=== PATIENT | female | born 1930 | race Caucasian/White ===

== ENCOUNTER 2017-04-01 14:07 | Outpatient (CLI) | payer MEDICARE, OTHER | END 2017-04-01 14:08 | disposition home or self-care (01) | LOC: BICCT 14:07 | PROVIDERS: ATTEND Nurse Practitioner Family | DX: M51.16 Intervertebral disc disorders with radiculopathy, lumbar region (principal); M48.04 Spinal stenosis, thoracic region; M41.9 Scoliosis, unspecified; M25.78 Osteophyte, vertebrae; M48.061 Spinal stenosis, lumbar region without neurogenic claudication; M43.16 Spondylolisthesis, lumbar region; K76.89 Other specified diseases of liver; D35.00 Benign neoplasm of unspecified adrenal gland; M47.26 Other spondylosis with radiculopathy, lumbar region | CPT/HCPCS: 72128; 72131 ==

== ENCOUNTER 2017-11-24 10:34 | Inpatient (IN) | payer MEDICARE, OTHER ==
--- NOTE | 2017-11-24 11:52 | RAD ---
3 VIEW RIGHT HAND: Date: 11/24/17 INDICATION: Injury, fall with pain. FINDINGS: There is scattered osteoarthritis and osseous demineralization. Degenerative, chronic mild subluxatio n at the first CMC joint is present with adjacent heterotopic density and osseous remodeling. No acut e fracture visualized. IMPRESSION: No acute osseous abnormality of the right hand. POS: [facility]
--- NOTE | 2017-11-24 11:55 | RAD ---
FRONTAL VIEW PELVIS: Date: 11/24/17 INDICATION: Injury with fall. FINDINGS: There is no displaced hip fracture. There is a focal density overlying the proximal right femoral met aphysis, which could relate to sclerosis from a bone island or alternatively overlying soft tissue ca lcification, not further localized on the frontal view. There are scattered osseous degenerative soto ges. Phleboliths are present overlying the pelvis. There is moderate retained fecal material of the r ectosigmoid colon. IMPRESSION: No acute osseous abnormality of the pelvis. POS: [facility]
--- NOTE | 2017-11-24 11:56 | RAD ---
FRONTAL VIEW CHEST: Date: 11/24/17 COMPARISON: None available. INDICATION: Fall with injury and pain. FINDINGS: There is no lobar consolidation, effusion, or discrete pneumothorax. Cardiac silhouette is accentuate d by portable technique, as is the mediastinum. There is a left side dual lead cardiac pacing device with leads overlying expected region of right atrium and right ventricle. Surgical anchor is seen at the right shoulder. IMPRESSION: No focal consolidation. POS: [facility]
--- NOTE | 2017-11-24 11:57 | RAD ---
LEFT WRIST 3 VIEWS: Date: 11/24/17 HISTORY: 87-year-old female with history of mechanical fall from standing with left wrist pain. FINDINGS: Diffuse bone demineralization. Degenerative changes left wrist. Subtle cortical and trabecular irregu larity involving the distal radius metaphysis region, evidence for a nondisplaced fracture. IMPRESSION: Evidence for a nondisplaced fracture through the distal radial metaphysis without significant malalig nment. POS: [facility]
--- NOTE | 2017-11-24 11:58 | RAD ---
2 VIEW LEFT HIP: Date: 11/24/17 INDICATION: Fall from standing with pain. FINDINGS: There is no evidence of an acute fracture or dislocation of the left hip. There is mild osteoarthriti s. IMPRESSION: No acute osseous abnormality of the left hip. POS: [facility]
--- NOTE | 2017-11-24 11:59 | RAD ---
4 VIEW LEFT KNEE SERIES: Date: 11/24/17 INDICATION: Fall with injury and pain. FINDINGS: Chondrocalcinosis, joint compartment narrowing, and mild osteophytosis are present. There is no signi ficant joint capsular distention or evidence of acute fracture. Soft tissue prominence is seen. IMPRESSION: 1. Evidence of CPPD deposition disease. 2. There is no acute fracture. POS: [facility]
--- NOTE | 2017-11-24 12:00 | RAD ---
RIGHT KNEE 4 VIEW SERIES: Date: 11/24/17 INDICATION: Fall with injury, pain. FINDINGS: There is chondrocalcinosis, osteophytosis, and mild joint compartment narrowing. Mild joint capsular distention is seen at the suprapatellar bursa and there is mild soft tissue prominence. No discrete f racture. IMPRESSION: 1. CPPD deposition disease. 2. Mild joint capsular distention. 3. No acute fracture. POS: [facility]
--- NOTE | 2017-11-24 12:01 | RAD ---
LEFT HAND 3 VIEWS: Date: 11/24/17 HISTORY: [id number] female with history of left hand injury following a fall from standing. FINDINGS: Bone demineralization and generalized degenerative changes of the hand. Again noted is a nondisplaced , mildly buckling-type fracture through the distal radial metaphysis without displacement or malalign ment. IMPRESSION: Bone demineralization with degenerative and osteoarthrosis changes of the hand. Nondisplaced distal r adial fracture without malalignment. POS: [facility]
[2017-11-24 12:04] LABS: #Eosinphils 0.2 thou/uL (0.0-0.7); #Lymphocytes 0.9 thou/uL (1.20-3.40); #Monocytes 0.6 thou/uL (0.11-0.59); #Neutrophils 5.8 thou/uL (1.40-6.50); %Basophils 0.6 % (0.0-1.0); %Eosinophils 2.1 % (0.0-10.0); %Lymphocytes 11.5 % (21.0-51.0); %Monocytes 7.7 % (0.0-10.0); Hemoglobin 11.1 g/dL (12.0-16.0); Mean Corpuscular HGB CONC 32.7 g/dL (32.0-36.0); Mean Corpuscular Hemoglobin 28.6 pg (27.0-31.0); Mean Corpuscular Volume 87.6 fL (78.0-98.0); Mean Platelet Volume 7.6 fL (7.4-10.4); Platelet Count 236 thou/uL (130-400); RBC Distribution Width 12.6 % (11.5-14.5); Red Blood Cell (RBC) Count 3.89 mill/uL (4.20-5.40); White Blood Cell (WBC) Count 7.4 thou/uL (4.8-10.8)
[2017-11-24 12:10] LABS: INR-International Normal Ratio 1.1; PTT 28.6 SEC (22.9-36.1); Prothrombin Time 14.7 SEC (12.0-14.7)
[2017-11-24 12:23] LABS: ALT (SGPT) 23 U/L (8-55); AST (SGOT) 35 U/L (5-34); Albumin 3.7 g/dL (3.4-4.8); Alkaline Phosphatase 90 U/L (40-150); Anion Gap 14 mmol/L (10-20); BUN (Urea Nitrogen) 20 mg/dL (9.8-20.1); Bilirubin, Total 0.9 mg/dL (0.2-1.2); CK (CPK) 437 U/L (29-168); Calc. Creatinine Clearance 0 mL/min (70-130); Calcium 9.2 mg/dL (7.8-10.44); Carbon Dioxide 22 mmol/L (23-31); Chloride 105 mmol/L (98-107); Estimated GFR-MDRD 84; Globulin 2.4 g/dL (2.4-3.5); Glucose 103 mg/dL (83-110); Potassium 3.3 mmol/L (3.5-5.1); Protein, Total 6.1 g/dL (6.0-8.3); Sodium 138 mmol/L (136-145)
[2017-11-24 12:27] LABS: Troponin I 0.011 ng/mL (< 0.028)
[2017-11-24 12:33] LABS: CKMB 11.8 ng/mL (0-6.6)
--- NOTE | 2017-11-24 13:06 | CT ---
CT HEAD NONCONTRAST: Date: 11/24/17 INDICATION: Head injury with pain related to fall. There is mild parenchymal volume loss. There is also prominence of the ventricular system and moderat e chronic ischemic disease of the cerebral white matter. No intracranial hemorrhage, mass effect, or midline shift. No acute fluid level of the paranasal sinuses. IMPRESSION: 1. Prominent ventricular system notable at the frontal horns which is slightly out of proportion to the degree of size of the cerebral sulci. Recommend clinical correlation for evidence of normal press ure hydrocephalus. 2. No acute intracranial hemorrhage or mass effect. 3. Mild to moderate chronic ischemic disease of the cerebral white matter. Gliosis is also seen with in the bilateral basal ganglia. POS: [facility]
--- NOTE | 2017-11-24 13:07 | CT ---
CERVICAL SPINE CT NONCONTRAST: Date: 11/24/17 CLINICAL INDICATION: Fall with neck pain, injury. FINDINGS: There is diffuse osseous demineralization with multifocal areas of scattered osseous lucency. No cran iocervical distraction injury. There is no compression fracture or significant subluxation. IMPRESSION: No acute osseous abnormality of the cervical spine. POS: [facility]
--- NOTE | 2017-11-24 13:09 | CT ---
CT FACIAL BONES NONCONTRAST: Date 11/24/17 INDICATION: Injury related to fall with pain. FINDINGS: No retrobulbar hematoma or mass effect. [place] intraocular lenses are absent. Each zygomatic arch is intact. There is no displaced nasal bone fracture. Maxillary sinus barajas and bilateral orbital barajas are intact. There is a left moore nasal septal spur. No fracture at the pterygoid plates. Temporomandi bular joints maintain appropriate alignment. IMPRESSION: No displaced facial fracture. POS: [facility]
[2017-11-24 13:13] LABS: Bilirubin Negative (Negative); Blood, Urine Negative (Negative); Clarity CLOUDY (Clear); Glucose, Urine (Dipstick) Negative (Negative); Leukocyte Small (Negative); Nitrite Negative (Negative); Protein, Urine (Dipstick) Negative (Neg-Trace); Specific Gravity, Urine 1.014 (1.002-1.036); Urobilinogen 0.2 mg/dL (0.2-1.0)
[2017-11-24 13:15] LABS: Bacteria/HPF None Seen HPF (None Seen); Hyaline Casts/LPF 0-3 HYALINE CAST LPF (0-3 Hyaline); Pathc Cast-AUWi Flag 0.14 (0-2.49); Squamous Epithelial 0-3 HPF (0-3); WBC/HPF 0-3 HPF (0-3)
[2017-11-24 13:25] LABS: RBC/HPF None Seen HPF (0-3)
[2017-11-24] MEDS ORDERED: HYDROcodone/Acetaminophen 10/325 mg Tablet ONE (15:21)
[2017-11-24] MEDS ORDERED: HYDROcodone/Acetaminophen 5/325 mg Tablet PO PRN ×2 (16:24)
[2017-11-24] MEDS ORDERED: Acetaminophen 325 MG TAB PO PRN (16:24)
[2017-11-24] MEDS ORDERED: Ondansetron ODT 4 MG TAB SL PRN (16:24)
[2017-11-24] MEDS ORDERED: Ondansetron HCl/PF 4 MG/2 ML Vial IVP PRN (16:24)
[2017-11-24 16:45] VITALS: BMI 29.0
[2017-11-24] MEDS ORDERED: Prevnar 13-Val Conj/PF 0.5 ML SYRINGE IM ONE (18:30)
[2017-11-24] MEDS: Flecainide 50 MG TAB PO SCH (20:30)
--- NOTE | 2017-11-24 22:04 | HP ---
CHIEF COMPLAINT: Falls. HISTORY OF PRESENT ILLNESS: This patient is an 87-year-old female with a history of atrial fibrillat ion followed by Dr. Henriquez, she is on anticoagulation with Eliquis and she is also on flecainide. Patient presented through the emergency department. Following another fall this morning. Patient s ays she has fallen at least 5 times in the last 2 weeks. She has hit her face and lacerated her chin and had a difficult time making bleeding stopped because of the anticoagulation. The patient did in jure her wrist today. She reports that all of her falls have been circumstantial related to trips or obstacles in such, however, the family reports that she has been having some difficulty with her gai t as well. Patient denies any dizziness, lightheadedness, syncope, vision changes, or cardiac sympto ms associated with these falls. Also of note, she denies any significant problems with bowel or blad bony. She has number of areas with some minor musculoskeletal pain including both hands, left hip, le ft knee. 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 She also does admit to some lower extremity edema, which is somewhat postural. She has some heartburn and indigestion symptoms from [id number]. She also reports occasional dyspnea on exertio n and occasional depression symptoms due to her physical limitations. Otherwise, remainder of a 10-s ystem review was unremarkable. PAST MEDICAL HISTORY: Notable for liver cysts. She reports that she has had surgery four separate t imes because of these liver cysts, the last one apparently contained about 2 liters of fluid. She garay s a history of atrial fibrillation, degenerative lumbar spine disease, colon cancer, or melanoma. PAST SURGICAL HISTORY: Shoulder surgery and the liver cyst x4. FAMILY HISTORY: Her mother had "rheumatism". SOCIAL HISTORY: Patient is a nonsmoker, nondrinker, nondrug user. She is . She is a FULL C ODE and her daughter one of her other children would be her surrogate decision maker should that beco me necessary. ALLERGIES: ERYTHROMYCIN BASE, HYDROMORPHONE, AND MORPHINE. MEDICATIONS: Vascepa 0.5 mg every day, aspirin 81 mg every day, Eliquis 5 mg b.i.d., Lasix 40 mg ever y day, sertraline 100 mg every day, metoprolol 50 mg every day, hydrocodone 2 q.6 hours p.r.n., and f lecainide 50 mg p.o. b.i.d. PHYSICAL EXAMINATION: VITAL SIGNS: Temperature is 97.7, pulse 79, respirations 18, O2 sat 93% on room air, BP 161/99. GENERAL APPEARANCE: Age appropriate female in no distress. Awake, alert, oriented, pleasant, gonsalo ative. HEENT: PERRL. No OP lesions. She does have some bruising about the right periorbital area, left si de of the face and left chin with about a 1 cm laceration to the left chin area. NECK: Supple and symmetric without lymphadenopathy. CARDIOVASCULAR: Regular rate and rhythm without murmurs, gallops, or rubs. CHEST: Lungs are clear to auscultation bilaterally. ABDOMEN: Soft, nontender, nondistended, positive bowel sounds. No masses with normal bowel sounds. EXTREMITIES: Warm and dry. There is no significant edema present. She does have some varicosities of the lower extremities. She has some tenderness and swelling in the left wrist. LABORATORY DATA: White count 7.4, hemoglobin 11.1, platelets 236. PT is 14.7, INR 1.1. Sodium 138, potassium 3.3, chloride 105, CO2 of 22, BUN 20, creatinine 0.67, glucose 103, calcium 9.2. AST 35, ALT is 23. CK is 437. Troponin 0.011. BNP is 107.7, albumin 3.7. Urinalysis negative. Multiple x -rays obtained of musculoskeletal system revealed a distal radial fracture that is nondisplaced. IMAGING: A CT of brain shows prominent ventricular system notable for the frontal horns, which may b e slightly out of proportion to the degree of the size of the cerebral sulci. Clinical correlation r ecommended for normal pressure hydrocephalus, [id number] chronic ischemic disease of the cerebr al white matter, gliosis is seen within the bilateral basal ganglia. IMPRESSION AND PLAN: 1. Frequent falls, etiology is unclear. CT is concerning for the possibility of normal pressure hyd rocephalus and the patient does apparently have some new issues with gait. We will consult Neurology , consult Physical Therapy for further evaluation and determination. The patient will need more aggr essive investigation for possible normal pressure hydrocephalus. Patient also has a history of some degenerative lumbar disease, which could be contributory as well. 2. History of atrial fibrillation. The patient is stable on flecainide, beta agustin, and anticoagu lation. The anticoagulation is a bit concerning given her fall history. We will discuss with Dr. Buenrostro tomorrow. We will keep the patient on telemetry to ensure that she is not having any sort of arrhythmogenic issues contributing to her falls. We will continue with the flecainide, metoprolol. 3. Left wrist fracture appears to be generally stable and has a soft immobilizer. We will consult O rtho. 4. Facial contusions. CT of the facial bones was negative for fracture.
[2017-11-24] MEDS: Melatonin 3 MG TAB PO PRN (23:49)
[2017-11-25] MEDS ORDERED: HYDROcodone/Acetaminophen 5/325 mg Tablet PO PRN (06:09)
[2017-11-25] MEDS: Flecainide 50 MG TAB PO SCH ×2 (08:33→20:31)
[2017-11-25] MEDS ORDERED: Furosemide 40 MG TAB PO SCH ×2 (11:10→11:30)
[2017-11-25] MEDS ORDERED: Flecainide 50 MG TAB PO SCH ×2 (11:10→11:30)
[2017-11-25] MEDS ORDERED: Metoprolol Tartrate 50 MG TAB PO SCH ×2 (11:10→11:30)
[2017-11-25] MEDS: HYDROcodone/Acetaminophen 10/325 mg Tablet PO PRN ×2 (13:10→20:31)
[2017-11-25] MEDS ORDERED: Apixaban 5 MG TAB PO SCH (21:00)
--- NOTE | 2017-11-25 21:40 | PDOC.PN ---
- Subjective Encounter Start Date: 11/25/17 Encounter Start Time: 09:00 No new complaints today. Does not feel well, but nothing specific. Thinks she may feel less than well because of receiving a flu shot last night. - Objective Resuscitation Status: Resuscitation Status FULL:Full Resuscitation Vital Signs & Weight: Vital Signs (12 hours) Temp Pulse Pulse Resp BP BP BP 11/25/17 19:24 98.9 F 64 18 146/78 H 11/25/17 15:50 98.7 F 61 16 149/88 H 11/25/17 11:16 98.4 F 75 18 171/87 H 11/25/17 10:37 72 145/82 H 200/96 H Pulse Ox 11/25/17 19:24 94 L 11/25/17 15:50 92 L 11/25/17 11:16 94 L 11/25/17 10:37 Weight Weight 163 lb 14.4 oz I&O: 11/24/17 11/25/17 11/26/17 06:59 06:59 06:59 Intake Total 720 1400 Balance 720 1400 Result Diagrams: 11/24/17 11:44 11/24/17 11:44 Phys Exam - Physical Examination Constitutional: NAD HEENT: PERRLA Facial ecchymosis Respiratory: no wheezing, no rales, no rhonchi Cardiovascular: RRR, no significant murmur Gastrointestinal: soft, non-tender, no distention Musculoskeletal: no edema Psychiatric: normal affect Dx/Plan (1) Frequent falls Code(s): R29.6 - REPEATED FALLS Status: Acute Comment: Ventricles slightly enlarged on CT head concerning for NPH. Awaiting consult from Neurology. PT/ OT eval. Inpatient rehab eval. (2) Facial contusion Code(s): S00.83XA - CONTUSION OF OTHER PART OF HEAD, INITIAL ENCOUNTER Status : Acute Comment: On Eliquis for afib made bruising worse. Off now. (3) Radial fracture Code(s): S52.90XA - UNSP FRACTURE OF UNSP FOREARM, INIT FOR CLOS FX Status: Acute Comment: Soft brace left wrist. Ortho consult called from ED. Likely stable with just brace. OT consult as well. (4) Atrial fibrillation Code(s): I48.91 - UNSPECIFIED ATRIAL FIBRILLATION Status: Acute Comment: Rate controlled. Off Eliquis now due to falls. (5) Dementia Code(s): F03.90 - UNSPECIFIED DEMENTIA WITHOUT BEHAVIORAL DISTURBANCE Status: Acute Comment: Discussing with the patient's family, it would appear that the dementia is more advanced that one would surmise from a more superficial conversation with the patient. NPH still in the differential. Family considering living situation. - Plan * above.
[2017-11-25] MEDS: Melatonin 3 MG TAB PO PRN (22:26)
--- NOTE | 2017-11-25 23:17 | CON ---
DATE OF CONSULTATION: 11/25/2017 HISTORY OF PRESENT ILLNESS: Ms. Olea is an 87-year-old white female who has been falling quite a bi t. She reports that she has fallen approximately 5 times in the last 2 weeks. She fell yesterday, i njuring her chin and eye and her left wrist. The patient was brought to the emergency room where she had x-rays obtained. X-rays of the left wrist shows nondisplaced fracture in the metaphyseal region of the left distal radius. The patient was placed in a splint. She has no neurologic complaints in the left hand. PHYSICAL EXAMINATION: The left wrist has mild to moderate swelling and she has point tenderness over the distal radius. She is able to flex and extend all of her digits well. The hand has good capill dede refill and good sensation. I reviewed the x-rays of the left wrist shows nondisplaced fracture of the left distal radius. PLAN: The patient will continue with her splint. She was informed that she needs to avoiding pushin g, pulling, lifting with the left hand. She needs to go to rehab to improve her coordination and try to avoid the falling. She will need to use a walker with a forearm extension so that she can be non weightbearing on the left wrist. She will follow up in my office in approximately 2 weeks.
[2017-11-26 04:47] LABS: Anion Gap 10 mmol/L (10-20); BUN (Urea Nitrogen) 15 mg/dL (9.8-20.1); Calc. Creatinine Clearance 82 mL/min (70-130); Calcium 9.1 mg/dL (7.8-10.44); Carbon Dioxide 24 mmol/L (23-31); Chloride 107 mmol/L (98-107); Estimated GFR-MDRD Greater than 90; Glucose 99 mg/dL (83-110); Sodium 138 mmol/L (136-145)
[2017-11-26] MEDS ORDERED: Potassium Chloride 20 MEQ TAB PO SCH (09:00)
[2017-11-26] MEDS ORDERED: ICOSAPENT ETHYL 0.5 GM PO SCH (09:00)
[2017-11-26] MEDS ORDERED: Metoprolol Tartrate 50 MG TAB PO SCH (09:00)
[2017-11-26] MEDS ORDERED: Furosemide 40 MG TAB PO SCH (09:00)
[2017-11-26] MEDS: HYDROcodone/Acetaminophen 10/325 mg Tablet PO PRN (09:20)
[2017-11-26] MEDS: Flecainide 50 MG TAB PO SCH (09:22)
[2017-11-26 15:44] VITALS: BP 154/80; TEMP 98.1
--- NOTE | 2017-11-26 23:09 | CON ---
DATE OF CONSULTATION: 11/26/2017 NEUROLOGY CONSULTATION CONSULTING PHYSICIAN: Hospitalist. IMPRESSION: No evidence of normal pressure hydrocephalus. PLAN: Transfer to rehab. HISTORY OF PRESENT ILLNESS: Ms. Olea is a very pleasant 87-year-old woman with a past history of at rial fibrillation, followed by Dr. Henriquez. She has been on Eliquis and flecainide. The patient r eports that she was trying to adjust the speed of her fan when she stepped on her and tripped a nd fell. This resulted in a contusion to her jaw. On a second occasion, she was in the bathroom and the bath mat slipped out from under her feet and she fell again. This resulted in a fracture of her left wrist. Otherwise, she reports she gets around the house independently, usually with the use of a cane. She does not have any urinary incontinence. She manages all her own affairs. She still dr bloom and has not had any mishaps as far as we can tell. She had a CT scan of the brain done, which r aised some question of normal pressure hydrocephalus based on an overread by the radiologist. I was called to give a neurologic opinion. PAST MEDICAL HISTORY: Otherwise unremarkable other than some arthritis. PAST SURGICAL HISTORY: Shoulder surgery. FAMILY HISTORY: Noncontributory. SOCIAL HISTORY: She does not smoke or drink. ALLERGIES: ERYTHROMYCIN, HYDROCODONE, MORPHINE. PHYSICAL EXAMINATION: GENERAL: She is a well-nourished elderly lady, who is bright, alert and appropriate. VITAL SIGNS: Have been stable, but a bit hypertensive. HEENT: She has got several areas of ecchymosis over her face. NEUROLOGIC: She is alert and cooperative. Her speech is fluent and clear. No facial asymmetry was noted. She walks independently in a reasonable fashion considering her age. No abnormal movements w ere seen. LABORATORY STUDIES: Reviewed and appear unremarkable. IMAGING: CT images were reviewed and show some fairly prominent periventricular white matter ischemi c changes, mild ventriculomegaly as well as some enlargement as well. IMPRESSION: I do not see any suggestive evidence of normal pressure hydrocephalus. She has microvas cular disease, which concomitantly contributes to some gait decline and balance problems. Both of th e falls that occurred recently seemed to be explainable by mishaps. I will be happy to follow up wit h her as an outpatient.
--- NOTE | 2017-11-27 13:49 | EKG ---
Test Reason : Blood Pressure : / mmHG Vent. Rate : 082 BPM Atrial Rate : 082 BPM P-R Int : 216 ms QRS Dur : 082 ms QT Int : 392 ms P-R-T Axes : 043 -37 -19 degrees QTc Int : 457 ms AV sequential or dual chamber electronic pacemaker Confirmed by TERE PAREDES, SUSANA ([id number]), science editor KURT LEROY ([id number]) on 11/27/2017 1:48:33 PM Referred By: Confirmed By:SUSANA CARRANZA MD
== END 2017-11-26 07:30 | DRG 563 ==
LOC: ERS 10:34 → T4-B 16:04 → 2SE 17:36
PROVIDERS: ADMIT Internal Medicine; ATTEND Internal Medicine
DX: S52.502A Unspecified fracture of the lower end of left radius, initial encounter for closed fracture (principal); W19.XXXA Unspecified fall, initial encounter; F03.90 Unspecified dementia, unspecified severity, without behavioral disturbance, psychotic disturbance, mood disturbance, and anxiety; I48.91 Unspecified atrial fibrillation; Z79.01 Long term (current) use of anticoagulants; R29.6 Repeated falls; S00.93XA Contusion of unspecified part of head, initial encounter
CPT/HCPCS: 36415; 70450; 70486; 71045; 72125; 72170; 80048; 80053; 81003; 81015; 82553; 83880; 84484; 85025; 85610; 85730; 87086; 90471; 90662; 90670; 93005; G0008; G0009; G8978-GP-CK; G8979-GP-CI; G8987-GO-CJ; G8988-GO-CI

== ENCOUNTER 2018-05-20 04:50 | Emergency (ER) | payer MEDICARE, OTHER ==
[2018-05-20 05:51] LABS: Bilirubin Negative (Negative); Blood, Urine Small (Negative); Clarity CLOUDY (Clear); Glucose, Urine (Dipstick) Negative (Negative); Leukocyte Small (Negative); Nitrite Negative (Negative); Protein, Urine (Dipstick) Negative (Neg-Trace); Specific Gravity, Urine 1.006 (1.002-1.036)
[2018-05-20 05:53] LABS: Bacteria/HPF 4+ HPF (None Seen); Hyaline Casts/LPF 0-3 HYALINE CAST LPF (0-3 Hyaline); Pathc Cast-AUWi Flag 0.68 (0-2.49)
[2018-05-20 06:08] LABS: Hemoglobin 11.4 g/dL (12.0-16.0); Mean Corpuscular HGB CONC 31.3 g/dL (32.0-36.0); Mean Corpuscular Hemoglobin 26.8 pg (27.0-31.0); Mean Corpuscular Volume 85.5 fL (78.0-98.0); Platelet Count 215 thou/uL (130-400); RBC Distribution Width 14.2 % (11.5-14.5); Red Blood Cell (RBC) Count 4.24 mill/uL (4.20-5.40); White Blood Cell (WBC) Count 7.1 thou/uL (4.8-10.8)
[2018-05-20 06:09] LABS: #Eosinphils 0.2 thou/uL (0.0-0.7); #Lymphocytes 1.7 thou/uL (1.20-3.40); #Monocytes 0.5 thou/uL (0.11-0.59); #Neutrophils 4.7 thou/uL (1.40-6.50); %Basophils 0.4 % (0.0-1.0); %Eosinophils 2.7 % (0.0-10.0); %Lymphocytes 24.3 % (21.0-51.0); %Monocytes 6.9 % (0.0-10.0); %Neutrophils 65.7 % (42.0-75.0)
[2018-05-20] MEDS ORDERED: Ondansetron PF 4 MG/2 ML Vial ONE (06:15)
[2018-05-20] MEDS ORDERED: Morphine 2 MG/ML SYRINGE ONE (06:15)
[2018-05-20 06:30] LABS: ALT (SGPT) 14 U/L (8-55); AST (SGOT) 23 U/L (5-34); Alkaline Phosphatase 100 U/L (40-150); Anion Gap 12 mmol/L (10-20); BUN (Urea Nitrogen) 19 mg/dL (9.8-20.1); Bilirubin, Total 0.7 mg/dL (0.2-1.2); Calc. Creatinine Clearance 0 mL/min (70-130); Calcium 9.9 mg/dL (7.8-10.44); Carbon Dioxide 27 mmol/L (23-31); Chloride 101 mmol/L (98-107); Estimated GFR-MDRD 66; Globulin 3.2 g/dL (2.4-3.5); Glucose 89 mg/dL (83-110); Lipase 20 U/L (8-78); Protein, Total 7.2 g/dL (6.0-8.3); Sodium 136 mmol/L (136-145)
--- NOTE | 2018-05-20 07:05 | RAD ---
FRONTAL VIEW CHEST: Date: 05/20/18 COMPARISON: 11/24/17. INDICATION: Pain. Emergency exam. FINDINGS: No free air is seen beneath the hemidiaphragm. There is elevation of the right hemidiaphragm. Cardiac silhouette and mediastinal structures are prominent. This may be accentuated by portable technique a nd patient rotation. Exam is otherwise similar. There is minimal patchy density at each lung base fav oring atelectasis. IMPRESSION: 1. No focal consolidation. 2. Accentuated cardiomediastinal silhouette. POS: [facility]
--- NOTE | 2018-05-20 07:09 | CT ---
CT ABDOMEN AND PELVIS WITH CONTRAST: Date; 05/20/18 INDICATION: Abdominal pain. Reference made to 04/21/09 exam. FINDINGS: Redemonstration of multiple cysts of the hepatic parenchyma, with associated punctate calcification. There is no hydronephrosis of either kidney. Spleen is unremarkable. There is heterogeneous density o f the head and uncinate process of the pancreas, similar appearing to prior exam and may relate to in terspersed fat replacement within the pancreatic parenchyma. The bowel is incompletely evaluated with out enteric contrast. There is moderate distention of colon by fecal material. Peripheral linear hype rdensity of the bowel within the right lower quadrant suggests prior surgical change. Correlate with history. The lungs reveal mild volume loss and/or scarring, notably at the medial left lung base. Sca ttered osseous degenerative change present. There is no free air or significant ascites. Scattered va scular disease noted. IMPRESSION: 1. Multiple cystic lesions of the liver are redemonstrated with associated calcification, as were de picted on the April 2009 exam. 2. Moderate distention of the colon by fecal material. Bowel is incompletely assessed without the pr esence of enteric contrast. 3. Additional findings are detailed above. POS: [facility]
== END 2018-05-20 07:40 ==
LOC: ERS 04:50
DX: N39.0 Urinary tract infection, site not specified (principal); I48.91 Unspecified atrial fibrillation; Z79.82 Long term (current) use of aspirin; Z79.899 Other long term (current) drug therapy
CPT/HCPCS: 71045; 74177; 80053; 81003; 81015; 83690; 84484; 85025; 87077; 87086; 87186; 93005; 96361; 96374; 96375; J2270; J2405

== ENCOUNTER 2019-04-17 14:34 | Emergency (ER) | payer MEDICARE, OTHER ==
[2019-04-17 15:01] LABS: #Eosinphils 0.1 thou/uL (0.0-0.7); #Lymphocytes 1.4 thou/uL (1.20-3.40); #Monocytes 0.4 thou/uL (0.11-0.59); #Neutrophils 4.1 thou/uL (1.40-6.50); %Basophils 0.4 % (0.0-1.0); %Eosinophils 2.3 % (0.0-10.0); %Lymphocytes 22.6 % (21.0-51.0); %Monocytes 6.4 % (0.0-10.0); %Neutrophils 68.3 % (42.0-75.0); Hemoglobin 11.2 g/dL (12.0-16.0); Mean Corpuscular HGB CONC 31.8 g/dL (32.0-36.0); Mean Corpuscular Hemoglobin 26.2 pg (27.0-31.0); Mean Corpuscular Volume 82.6 fL (78.0-98.0); Mean Platelet Volume 7.7 fL (7.4-10.4); Platelet Count 235 thou/uL (130-400); RBC Distribution Width 13.3 % (11.5-14.5); Red Blood Cell (RBC) Count 4.28 mill/uL (4.20-5.40)
[2019-04-17 15:22] LABS: ALT (SGPT) 8 U/L (8-55); AST (SGOT) 17 U/L (5-34); Albumin 4.2 g/dL (3.4-4.8); Alkaline Phosphatase 98 U/L (40-110); Anion Gap 11 mmol/L (10-20); BUN (Urea Nitrogen) 15 mg/dL (9.8-20.1); Bilirubin, Total 0.4 mg/dL (0.2-1.2); Calc. Creatinine Clearance 0 mL/min (70-130); Calcium 9.5 mg/dL (7.8-10.44); Carbon Dioxide 31 mmol/L (23-31); Chloride 102 mmol/L (98-107); Estimated GFR-MDRD 53; Globulin 2.8 g/dL (2.4-3.5); Glucose 118 mg/dL (83-110); Potassium 3.5 mmol/L (3.5-5.1); Sodium 140 mmol/L (136-145)
--- NOTE | 2019-04-17 17:32 | RAD ---
EXAM: CHEST ONE VIEW: 04/17/19 HISTORY: Weakness. COMPARISON: 05/20/18. FINDINGS: Heart size is upper range of normal. Inspiration less than optimal with some minimal right hemidiaphr agm elevation all stable. Left ICD. No confluent pneumonia, overt edema, or pleural effusion. IMPRESSION: No significant acute intrathoracic disease. Atherosclerosis of the aorta with ectasia. POS: [facility]
[2019-04-17 17:54] LABS: Bacteria/HPF 4+ HPF (None Seen); Bilirubin Negative (Negative); Blood, Urine Trace (Negative); Clarity Turbid (Clear); Glucose, Urine (Dipstick) Normal (Negative); Leukocyte 75 Leu/uL (Negative); Nitrite Negative (Negative); Protein, Urine (Dipstick) Negative (Neg-Trace); RBC/HPF 0-3 HPF (0-3); Squamous Epithelial 0-3 HPF (0-3); Urobilinogen Normal mg/dL (Less than 2)
== END 2019-04-17 18:22 | disposition home or self-care (01) ==
LOC: ERS 14:34
DX: N39.0 Urinary tract infection, site not specified (principal); I48.91 Unspecified atrial fibrillation; M19.90 Unspecified osteoarthritis, unspecified site; Z79.82 Long term (current) use of aspirin; Z79.01 Long term (current) use of anticoagulants; Z79.899 Other long term (current) drug therapy
CPT/HCPCS: 36415; 71045; 80053; 81003; 81015; 83605; 84443; 84484; 85025; 93005

== ENCOUNTER 2019-05-03 08:15 | Inpatient (IN) | payer MEDICARE, OTHER ==
[2019-05-03] MEDS ORDERED: Cefepime 2 GM VIAL ONE (09:13)
--- NOTE | 2019-05-03 09:32 | RAD ---
Exam: Chest one view HISTORY:Left lower extremity edema. Comparison: 04/17/2019 FINDINGS: Pacing device: Stable left-sided no lead transvenous pacemaker Cardiac silhouette:Mild enlarged cardiac silhouette. Aorta: Atherosclerosis and elongation of the aorta. Pulmonary vessels: Normal Costophrenic angles: Clear LUNGS: No masses or consolidation. Pneumothorax: None Osseous abnormalities: None IMPRESSION: No acute cardiopulmonary process. At the sclerosis.
[2019-05-03 09:38] LABS: #Eosinphils 0.1 thou/uL (0.0-0.7); #Lymphocytes 1.4 thou/uL (1.20-3.40); #Monocytes 0.5 thou/uL (0.11-0.59); #Neutrophils 3.7 thou/uL (1.40-6.50); %Basophils 0.7 % (0.0-1.0); %Eosinophils 2.6 % (0.0-10.0); %Lymphocytes 24.8 % (21.0-51.0); %Monocytes 7.8 % (0.0-10.0); %Neutrophils 64.1 % (42.0-75.0); Hemoglobin 10.5 g/dL (12.0-16.0); Mean Corpuscular HGB CONC 32.4 g/dL (32.0-36.0); Mean Corpuscular Hemoglobin 26.5 pg (27.0-31.0); Mean Corpuscular Volume 81.6 fL (78.0-98.0); Platelet Count 221 thou/uL (130-400); RBC Distribution Width 13.2 % (11.5-14.5); Red Blood Cell (RBC) Count 3.95 mill/uL (4.20-5.40); White Blood Cell (WBC) Count 5.8 thou/uL (4.8-10.8)
[2019-05-03 09:55] LABS: Bilirubin Negative (Negative); Blood, Urine Negative (Negative); Clarity Clear (Clear); Glucose, Urine (Dipstick) Normal (Negative); Leukocyte 250 Leu/uL (Negative); Nitrite Negative (Negative); Protein, Urine (Dipstick) Negative (Neg-Trace); RBC/HPF 0-3 HPF (0-3); Squamous Epithelial 0-3 HPF (0-3); Urobilinogen Normal mg/dL (Less than 2); WBC/HPF 0-3 HPF (0-3)
[2019-05-03 09:58] LABS: Bacteria/HPF 1+ HPF (None Seen)
[2019-05-03 10:09] LABS: ALT (SGPT) 8 U/L (8-55); AST (SGOT) 17 U/L (5-34); Albumin 4.1 g/dL (3.4-4.8); Alkaline Phosphatase 94 U/L (40-110); Anion Gap 11 mmol/L (10-20); BUN (Urea Nitrogen) 16 mg/dL (9.8-20.1); Bilirubin, Total 0.6 mg/dL (0.2-1.2); Calc. Creatinine Clearance 0 mL/min (70-130); Calcium 9.6 mg/dL (7.8-10.44); Carbon Dioxide 30 mmol/L (23-31); Chloride 101 mmol/L (98-107); Estimated GFR-MDRD 60; Globulin 2.8 g/dL (2.4-3.5); Glucose 93 mg/dL (83-110); Potassium 3.4 mmol/L (3.5-5.1); Protein, Total 6.9 g/dL (6.0-8.3); Sodium 139 mmol/L (136-145)
[2019-05-03] MEDS ORDERED: Vancomycin HCl 1.75 GM in Sodium Chloride 0.9% 500 ML IVPB SCH (11:15)
[2019-05-03] MEDS ORDERED: Acetaminophen 325 MG TAB PO PRN (12:45)
[2019-05-03] MEDS ORDERED: Ondansetron ODT 4 MG TAB SL PRN (12:45)
[2019-05-03] MEDS ORDERED: HYDROcodone/Acetaminophen 5/325 mg Tablet PO PRN ×2 (12:45)
[2019-05-03] MEDS ORDERED: Ondansetron PF 4 MG/2 ML Vial IVP PRN (12:45)
[2019-05-03 12:52] VITALS: BMI 27.4
[2019-05-03] MEDS: cefTRIAXone\\ROCEPHIN 1 GM in Sodium Chloride 0.9% 100 ML IVPB SCH (15:44)
--- NOTE | 2019-05-03 16:55 | ULT ---
Exam: Left lower extremity venous ultrasound with Doppler HISTORY: Soft tissue edema. COMPARISON: None TECHNIQUE: Grayscale, color flow, Doppler imaging and spectral waveform analysis performed the left l ower extremity venous system FINDINGS: There is compressibility, presence of flow and augmentation in the common femoral vein, femoral vein and popliteal vein. There is flow in the greater saphenous vein, profunda femoral vein. There is flow in the posterior tibial vein. Soft tissue edema in the lower extremity IMPRESSION: 1. Soft tissue edema 2. No evidence of thrombus in the left lower extremity deep venous system.
[2019-05-03] MEDS: HYDROcodone/Acetaminophen 10/325 mg Tablet PO PRN (18:52)
[2019-05-03] MEDS: Flecainide 50 MG TAB PO SCH (20:33)
--- NOTE | 2019-05-03 20:38 | HP ---
CHIEF COMPLAINT: Redness in her left leg. HISTORY OF PRESENT ILLNESS: This patient is an 89-year-old female whom I had the pleasure of admitting in this facility in November 2017. The patient is here today at the request of her primary care physician, Dr. Ryder Hernandez. The patient reports that over the past year or so she has had significant lower extremity edema. This was actually worse initially on the right side, but she had a vein ablation and that actually got some better; however, she has had persistent edema that is now worse on the left. Of late, it has been consistently generally red, however, has become more red over the last several days. She has had no pain and she has had no fevers or chills. She states the nurse at the [facility] called Dr. Hernandez and he recommended the patient come to the emergency department. The patient has also recently had a couple urinary tract infections and was on some p.o. antibiotics. It looks like she was on Levaquin that was originally prescribed on April 17 and was 4 to 5 days. She relates increasing erythema since the discontinuation of that. In the emergency department, the patient received a dose of Rocephin, cefepime, and fluids. REVIEW OF SYSTEMS: The patient reports that she generally tries to limit her intake of fluids, but otherwise has a normal appetite and thirst. She has some constipation, which she relates to being on diuretics. All other systems were reviewed. All systems were negative except for those things mentioned in the history of present illness. PAST MEDICAL HISTORY: Notable for cysts on her liver requiring prior surgery. Again, she reiterates that one of the cyst had 2 L of fluid. She has a history of atrial fibrillation, degenerative lumbar spine disease, history of colon cancer, history of melanoma. Of note, at the patient's last admission in 2017, she had had some falls and some facial contusion. She went to inpatient rehab, but the plan at the time of discharge was to discontinue anticoagulation after discussion with her helicopter dispatcher, Dr. Henriquez, but it appears as though she is back on them now. PAST SURGICAL HISTORY: Shoulder surgery, liver cyst surgery x4, lower extremities vein ablation, and a pacemaker placement. FAMILY HISTORY: Mother had "rheumatism." SOCIAL HISTORY: She is a nonsmoker, nondrinker, and nondrug user. She is . She is full code and her surrogate decision maker would be her daughter, any of her children. ALLERGIES: ERYTHROMYCIN, HYDROMORPHONE, AND MORPHINE. MEDICATIONS: 1. Eliquis 5 mg p.o. b.i.d. 2. Hydrocodone 10-325 two p.o. q.6 hours p.r.n. 3. Lasix 40 mg daily. 4. Tambocor 50 mg b.i.d. 5. Sertraline 100 mg daily. 6. Metoprolol 50 mg daily. 7. Vascepa 0.5 mg daily. PHYSICAL EXAMINATION: VITAL SIGNS: Temperature is 98.1, pulse 63, respiratory rate 18, O2 saturation 98% on room air, and BP is 183/87. GENERAL APPEARANCE: Age-appropriate female. She is in no distress. She is very pleasant, awake, alert, and oriented. HEENT: PERRL. No OP lesions. NECK: Supple and symmetric. HEART: Regular without murmurs. No gallops. No rubs. LUNGS: Clear to auscultation bilaterally with no wheezes, rales, or rhonchi. Good chest wall expansion. ABDOMEN: Soft, nontender, and nondistended. Positive bowel sounds. No masses. No organomegaly. EXTREMITIES: 3+ pitting edema of the left lower extremity and 2 to 3+ pitting edema of the right lower extremity. On the left, there is an area of erythema surrounding the distal calf extending onto the dorsum of the foot. This area is slightly blanchable, warm to touch, nontender. There is a small area of healing broken skin on the lateral distal calf on the left, there is no weeping. PSYCH: Normal affect and behavior. NEURO: Cranial nerves are fully intact. She appears to be cognitively intact. Moves all extremities spontaneously with no evidence of focal deficits. LABORATORY DATA: White count 5.8, hemoglobin 10.5, and platelets 221. Chemistries normal. CMP is normal with the exception of potassium of 3.4. Urinalysis only notable for positive leukocyte esterase and 1+ bacteria, otherwise normal. Chest x-ray is clear. IMPRESSION AND PLAN: 1. Cellulitis of the left lower extremity. She is afebrile, has normal white blood cell count. She likely finished her last round of antibiotics 10 days ago, which was Levaquin directed to a urinary tract infection. We will keep her on IV Rocephin. Check lower extremity Doppler and reassess how she looks tomorrow. She appears to have some underlying chronic stasis dermatitis secondary to fairly severe chronic lower extremity edema. She reports these have been evaluated extensively by Dr. Hernandez and by Dr. Henriquez. May need to involve wound care depending on the healing process. 2. Chronic stasis dermatitis. The patient reports she does wear compression stockings and has a compression device that she has used 3 times per week. 3. History of atrial fibrillation. She has a pacemaker. We will determine whether she is continually on the Eliquis at this time tomorrow and we can call Dr. Henriquez's office to confirm. We will continue the flecainide and metoprolol. 4. Hyperlipidemia. Continue Vascepa. Job ID: [id number]
[2019-05-03] MEDS ORDERED: Cefepime 2 GM in Sodium Chloride 0.9% 100 ML IVPB SCH (21:00)
[2019-05-03] MEDS ORDERED: Apixaban 5 MG TAB PO SCH (21:00)
[2019-05-04] MEDS ORDERED: diphenhydrAMINE 25 MG CAP PO SCH (01:15)
[2019-05-04] MEDS: HYDROcodone/Acetaminophen 10/325 mg Tablet PO PRN ×2 (01:39→11:16)
[2019-05-04 05:19] LABS: #Eosinphils 0.2 thou/uL (0.0-0.7); #Lymphocytes 1.6 thou/uL (1.20-3.40); #Monocytes 0.4 thou/uL (0.11-0.59); #Neutrophils 3.7 thou/uL (1.40-6.50); %Basophils 0.6 % (0.0-1.0); %Eosinophils 2.9 % (0.0-10.0); %Monocytes 6.9 % (0.0-10.0); %Neutrophils 62.6 % (42.0-75.0); Hemoglobin 9.5 g/dL (12.0-16.0); Mean Corpuscular HGB CONC 32.4 g/dL (32.0-36.0); Mean Corpuscular Hemoglobin 26.3 pg (27.0-31.0); Mean Corpuscular Volume 81.1 fL (78.0-98.0); Mean Platelet Volume 8.2 fL (7.4-10.4); Platelet Count 204 thou/uL (130-400); RBC Distribution Width 13.3 % (11.5-14.5); Red Blood Cell (RBC) Count 3.63 mill/uL (4.20-5.40); White Blood Cell (WBC) Count 5.9 thou/uL (4.8-10.8)
[2019-05-04] MEDS: Furosemide 40 MG TAB PO SCH (08:52)
[2019-05-04] MEDS: Metoprolol Tartrate 50 MG TAB PO SCH (08:52)
[2019-05-04] MEDS: Icosapent Ethyl 1 GM CAPSULE PO SCH (08:53)
[2019-05-04] MEDS: Flecainide 50 MG TAB PO SCH ×2 (08:57→20:31)
--- NOTE | 2019-05-04 10:31 | PDOC.HOSPP ---
- Subjective Encounter Date: 05/04/19 Encounter Time: 10:29 Subjective: no fever, chills. decreased discomfort in LLE - Objective Vital Signs & Weight: Vital Signs (12 hours) Temp Pulse Resp BP Pulse Ox 05/04/19 07:23 97.8 F 85 16 125/56 L 98 Weight Weight 155 lb I&O: 05/03/19 05/04/19 05/05/19 06:59 06:59 06:59 Intake Total 350 Balance 350 Result Diagrams: 05/04/19 04:51 05/03/19 08:54 Hospitalist ROS - Medication Medications: Active Medications Generic Name Dose Route Start Last Admin Trade Name Freq PRN Reason Stop Dose Admin Hydrocodone Bitart/Acetaminophen 2 tab 05/03/19 14:46 05/04/19 01:39 [place] 10/325 PO 2 tab Q6HR PRN Administration Moderate to Severe Pain (6-10) Flecainide Acetate 50 mg 05/03/19 21:00 05/04/19 08:57 Tambocor PO 50 mg BID IVETT Administration Furosemide 40 mg 05/04/19 09:00 05/04/19 08:52 Lasix PO 40 mg DAILY IVETT Administration Ceftriaxone Sodium 1 gm/ 100 mls @ 200 mls/hr 05/03/19 15:00 05/03/19 15:44 Sodium Chloride IVPB 100 mls Q24HR IVETT Administration Metoprolol Tartrate 50 mg 05/04/19 09:00 05/04/19 08:52 Lopressor PO 50 mg DAILY IVETT Administration Miscellaneous Medication 1 gm 05/04/19 09:00 05/04/19 08:53 Vascepa PO 1 gm DAILY IVETT Administration Sertraline HCl 100 mg 05/04/19 09:00 05/04/19 08:52 Zoloft PO 100 mg DAILY IVETT Administration - Exam General Appearance: awake alert Neck: no JVD Heart: RRR, no murmur Respiratory: CTAB Gastrointestinal: soft, non-tender, normal bowel sounds Extremities: no edema Extremities - other findings: mild erythema, tenderness left ankle Hosp A/P (1) Cellulitis and abscess of leg Code(s): L03.119 - CELLULITIS OF UNSPECIFIED PART OF LIMB; L02.419 - CUTANEOUS ABSCESS OF LIMB, UNSPECIFIED Status: Acute (2) Atrial fibrillation with normal ventricular rate Code(s): I48.91 - UNSPECIFIED ATRIAL FIBRILLATION Status: Chronic (3) Anticoagulant long-term use Code(s): Z79.01 - EDUCATIONAL PARAPROFESSIONAL (CURRENT) USE OF ANTICOAGULANTS Status: Chronic (4) Dyslipidemia Code(s): E78.5 - HYPERLIPIDEMIA, UNSPECIFIED Status: Chronic - Plan cont rocephin iv x 3 days monitor cultures cont home meds
[2019-05-04] MEDS: cefTRIAXone\\ROCEPHIN 1 GM in Sodium Chloride 0.9% 100 ML IVPB SCH (16:02)
[2019-05-04] MEDS ORDERED: Melatonin 3 MG TAB PO SCH (21:00)
[2019-05-04] MEDS: Calcium Carbonate 500 MG ChewTAB PO PRN (21:58)
[2019-05-05] MEDS: HYDROcodone/Acetaminophen 10/325 mg Tablet PO PRN ×2 (02:42→22:43)
[2019-05-05] MEDS: Furosemide 40 MG TAB PO SCH (09:13)
[2019-05-05] MEDS: Icosapent Ethyl 1 GM CAPSULE PO SCH (09:13)
[2019-05-05] MEDS: Metoprolol Tartrate 50 MG TAB PO SCH (09:13)
[2019-05-05] MEDS: Flecainide 50 MG TAB PO SCH ×2 (09:13→21:11)
--- NOTE | 2019-05-05 13:23 | PDOC.HOSPP ---
- Subjective Encounter Date: 05/05/19 Encounter Time: 11:50 Subjective: slept late. left leg erythema -- per pt much improved. she will be getting CTX at 3pm. - Objective Vital Signs & Weight: Vital Signs (12 hours) Temp Pulse Resp BP Pulse Ox 05/05/19 08:45 97 05/05/19 07:06 98 F 61 18 154/81 H 97 Weight Weight 155 lb I&O: 05/04/19 05/05/19 05/06/19 06:59 06:59 06:59 Intake Total 350 1250 Output Total 2150 Balance 350 -900 Result Diagrams: 05/04/19 04:51 05/03/19 08:54 Hospitalist ROS - Medication Medications: Active Medications Generic Name Dose Route Start Last Admin Trade Name Freq PRN Reason Stop Dose Admin Hydrocodone Bitart/Acetaminophen 2 tab 05/03/19 14:46 05/05/19 02:42 [place] 10/325 PO 2 tab Q6HR PRN Administration Moderate to Severe Pain (6-10) Calcium Carbonate 1,000 mg 05/03/19 22:54 05/04/19 21:58 Tums PO 1,000 mg Q4H PRN Administration Heartburn Flecainide Acetate 50 mg 05/03/19 21:00 05/05/19 09:13 Tambocor PO 50 mg BID IVETT Administration Furosemide 40 mg 05/04/19 09:00 05/05/19 09:13 Lasix PO 40 mg DAILY IVETT Administration Ceftriaxone Sodium 1 gm/ 100 mls @ 200 mls/hr 05/03/19 15:00 05/04/19 16:02 Sodium Chloride IVPB 100 mls Q24HR IVETT Administration Metoprolol Tartrate 50 mg 05/04/19 09:00 05/05/19 09:13 Lopressor PO 50 mg DAILY IVETT Administration Miscellaneous Medication 1 gm 05/04/19 09:00 05/05/19 09:13 Vascepa PO 1 gm DAILY IVETT Administration Sertraline HCl 100 mg 05/04/19 09:00 05/05/19 09:13 Zoloft PO 100 mg DAILY IVETT Administration - Exam General Appearance: NAD, awake alert Eye: PERRL ENT: normocephalic atraumatic Neck: supple Heart: RRR, normal peripheral pulses Respiratory: CTAB Gastrointestinal: soft, normal bowel sounds Neurological: cranial nerve grossly intact Hosp A/P - Plan 1) Cellulitis and abscess of leg Code(s): L03.119 - CELLULITIS OF UNSPECIFIED PART OF LIMB; L02.419 - CUTANEOUS ABSCESS OF LIMB, UNSPECIFIED Status: Acute (2) Atrial fibrillation with normal ventricular rate Code(s): I48.91 - UNSPECIFIED ATRIAL FIBRILLATION Status: Chronic (3) Anticoagulant long-term use Code(s): Z79.01 - HALF-WAY (CURRENT) USE OF ANTICOAGULANTS Status: Chronic (4) Dyslipidemia Code(s): E78.5 - HYPERLIPIDEMIA, UNSPECIFIED Status: Chronic - Plan cont rocephin iv x 3 days monitor cultures--urine cx 75K - mixed augusto; bl cx neg x 48hrs -clinically improving. pt lives at assisted living. dc in 1 to 2 days.
[2019-05-05] MEDS: cefTRIAXone\\ROCEPHIN 1 GM in Sodium Chloride 0.9% 100 ML IVPB SCH (15:01)
[2019-05-05] MEDS ORDERED: cefTRIAXone\\ROCEPHIN 1 GM VIAL ONE (15:58)
[2019-05-05] MEDS: Calcium Carbonate 500 MG ChewTAB PO PRN (16:13)
[2019-05-05] MEDS: Apixaban 5 MG TAB PO SCH (20:19)
[2019-05-05] MEDS ORDERED: Melatonin 3 MG TAB PO SCH (22:15)
[2019-05-06 07:36] VITALS: BP 157/84; TEMP 98.3
[2019-05-06] MEDS: Flecainide 50 MG TAB PO SCH (08:22)
[2019-05-06] MEDS: Furosemide 40 MG TAB PO SCH (08:22)
[2019-05-06] MEDS: Icosapent Ethyl 1 GM CAPSULE PO SCH (08:22)
[2019-05-06] MEDS: Metoprolol Tartrate 50 MG TAB PO SCH (08:22)
[2019-05-06] MEDS: Apixaban 5 MG TAB PO SCH (08:22)
--- NOTE | 2019-05-06 12:27 | PDOC.HOSPP ---
- Subjective Encounter Date: 05/06/19 Encounter Time: 12:26 Subjective: Ms. Olea was seen today in follow-up of cellulitis of the left leg. She says the swelling and redness has improved. She denies having any pain. - Objective Vital Signs & Weight: Vital Signs (12 hours) Temp Pulse Resp BP BP Pulse Ox 05/06/19 08:00 94 L 05/06/19 07:34 98.3 F 63 18 157/84 H 94 L 05/06/19 04:00 98.4 F 55 L 20 165/76 H 94 L Weight Admit Weight 155 lb Weight 155 lb I&O: 05/05/19 05/06/19 05/07/19 06:59 06:59 06:59 Intake Total 1250 1350 240 Output Total 2150 1450 Balance -900 -100 240 Result Diagrams: 05/04/19 04:51 05/03/19 08:54 Hospitalist ROS - Medication Medications: Active Medications Generic Name Dose Route Start Last Admin Trade Name Freq PRN Reason Stop Dose Admin Hydrocodone Bitart/Acetaminophen 2 tab 05/03/19 14:46 05/05/19 22:43 [place] 10/325 PO 2 tab Q6HR PRN Administration Moderate to Severe Pain (6-10) Apixaban 5 mg 05/05/19 21:00 05/06/19 08:22 Eliquis PO 5 mg BID IVETT Administration Calcium Carbonate 1,000 mg 05/03/19 22:54 05/05/19 16:13 Tums PO 1,000 mg Q4H PRN Administration Heartburn Flecainide Acetate 50 mg 05/03/19 21:00 05/06/19 08:22 Tambocor PO 50 mg BID IVETT Administration Furosemide 40 mg 05/04/19 09:00 05/06/19 08:22 Lasix PO 40 mg DAILY IVETT Administration Ceftriaxone Sodium 1 gm/ 100 mls @ 200 mls/hr 05/03/19 15:00 05/05/19 15:01 Sodium Chloride IVPB 100 mls Q24HR IVETT Administration Metoprolol Tartrate 50 mg 05/04/19 09:00 05/06/19 08:22 Lopressor PO 50 mg DAILY IVETT Administration Miscellaneous Medication 1 gm 05/04/19 09:00 05/06/19 08:22 Vascepa PO 1 gm DAILY IVETT Administration Sertraline HCl 100 mg 05/04/19 09:00 05/06/19 08:23 Zoloft PO 100 mg DAILY IVETT Administration - Exam Eye: PERRL Heart: RRR, no murmur, no gallops, no rubs, normal peripheral pulses Respiratory: CTAB, no wheezes, no rales, no ronchi, normal chest expansion, no tachypnea, normal percussion Gastrointestinal: soft, non-tender, non-distended, normal bowel sounds, no palpable masses, no hepatomegaly Extremities: no cyanosis, 1+ LE edema (+ erythema on the lower extremitites, no warmth, + chronic venous stasis changes on both legs.) Hosp A/P (1) Cellulitis and abscess of leg Code(s): L03.119 - CELLULITIS OF UNSPECIFIED PART OF LIMB; L02.419 - CUTANEOUS ABSCESS OF LIMB, UNSPECIFIED Status: Acute (2) Atrial fibrillation Code(s): I48.91 - UNSPECIFIED ATRIAL FIBRILLATION Status: Chronic (3) Dementia Code(s): F03.90 - UNSPECIFIED DEMENTIA WITHOUT BEHAVIORAL DISTURBANCE Status: Chronic - Plan * Left Lower extremity cellulitis- will transition her to Keflex * I suspect most of the remaining skin changes are due to chronic venous stasis dermatitis * Stable for discharge back to Assisted Living
--- NOTE | 2019-05-06 12:58 | DIS ---
DATE OF ADMISSION: 05/03/2019 DATE OF DISCHARGE: 05/06/2019 DISCHARGE DISPOSITION: Back to assisted living. DISCHARGE DIAGNOSES: 1. Cellulitis of the left lower extremity. 2. Chronic venous stasis dermatitis. 3. Chronic atrial fibrillation. 4. Hypertension. 5. History of colon cancer. 6. History of melanoma. DISCHARGE MEDICATIONS: Include: 1. Keflex 500 mg one p.o. twice a day for seven days. 2. Florastor 250 mg daily for two weeks. 3. Sertraline 100 mg daily. 4. Protonix 40 mg daily. 5. Metoprolol 50 mg daily. 6. Vascepa 0.5 mg p.o. b.i.d. 7. [place] 10/325 two tablets q.6 as needed. 8. Lasix 40 mg daily. 9. Tambocor 50 mg twice daily. 10. Eliquis 5 mg p.o. b.i.d. IMAGING DONE DURING THE HOSPITAL STAY: The patient had a lower extremity venous Doppler showing no evidence of thrombus in the left lower extremity. CODE STATUS: Full code. ALLERGIES: TO ERYTHROMYCIN BASE, HYDROMORPHONE, AND MORPHINE. HOSPITAL COURSE: Ms. Olea is a pleasant 89-year-old female, who was admitted to the hospital due to redness in the left lower extremity. She was admitted and started on IV antibiotics. Over the course of the next couple of days, the redness improved as well as the swelling. There is no fever and she never had any elevation in her white blood cell count. A lot of the skin changes could be attributed to venous stasis disease. As such, she was able to be discharged home and transitioned to oral antibiotics and to follow up with her primary care physician in 1 to 2 weeks as availability permits. Job ID: [id number]
[2019-05-06] MEDS: HYDROcodone/Acetaminophen 10/325 mg Tablet PO PRN (14:03)
[2019-05-06] MEDS ORDERED: Melatonin 3 MG TAB PO SCH (21:00)
--- NOTE | 2019-05-07 14:52 | EKG ---
Test Reason : Blood Pressure : / mmHG Vent. Rate : 062 BPM Atrial Rate : 053 BPM P-R Int : 000 ms QRS Dur : 088 ms QT Int : 452 ms P-R-T Axes : 000 -35 188 degrees QTc Int : 458 ms Electronic atrial pacemaker Left axis deviation Left ventricular hypertrophy with repolarization abnormality Abnormal ECG Confirmed by SOM PAREDES, BRITANY ([id number]), design editor DANA QUIROZ ([id number] on 05/07/2019 2:51:52 PM Referred By: SOM Confirmed By:BRITANY KEARNS MD
== END 2019-05-06 14:37 | disposition home or self-care (01) | DRG 603 ==
LOC: ERS 08:15 → T4-B 10:30
PROVIDERS: ADMIT Internal Medicine; ATTEND Internal Medicine
DX: L03.116 Cellulitis of left lower limb (principal); I48.20 Chronic atrial fibrillation, unspecified; M41.9 Scoliosis, unspecified; I87.2 Venous insufficiency (chronic) (peripheral); E78.5 Hyperlipidemia, unspecified; K21.9 Gastro-esophageal reflux disease without esophagitis; M51.36 Other intervertebral disc degeneration, lumbar region; Z85.038 Personal history of other malignant neoplasm of large intestine; Z88.8 Allergy status to other drugs, medicaments and biological substances; Z88.1 Allergy status to other antibiotic agents; Z88.5 Allergy status to narcotic agent; Z79.82 Long term (current) use of aspirin; Z79.01 Long term (current) use of anticoagulants; Z79.899 Other long term (current) drug therapy; Z95.0 Presence of cardiac pacemaker; Z85.820 Personal history of malignant melanoma of skin
CPT/HCPCS: 36415; 71045; 80053; 81003; 81015; 83605; 83880; 85025; 85652; 87040; 87086; 93005; 96361; 96365; 96367; J0692; J0696; J3370; J3490; J7050; Q0163

== ENCOUNTER 2019-08-22 14:58 | Emergency (ER) | payer MEDICARE, OTHER ==
[2019-08-22] MEDS ORDERED: Morphine 2 MG/ML SYRINGE ONE (15:38)
[2019-08-22] MEDS ORDERED: Ondansetron PF 4 MG/2 ML Vial ONE (15:38)
--- NOTE | 2019-08-22 16:01 | RAD ---
RADIOGRAPH RIGHT HUMERUS 2 VIEWS: 08/22/19 HISTORY: 89-year-old female with acute traumatic right arm pain due to fall. FINDINGS: No fracture of the humerus is identified. Diffuse osteopenia. IMPRESSION: No fracture. POS: JIN
--- NOTE | 2019-08-22 16:05 | RAD ---
RADIOGRAPH LEFT SHOULDER 3 VIEWs: 08/22/19 HISTORY: 89-year-old female with acute traumatic left shoulder pain due to fall. FINDINGS: Diffuse osteopenia. Generator for left subclavian transvenous pacemaker. No displaced acute fracture identified. No dislocation. Severe DJD AC joint. Mild to moderate DJD at glenohumeral joint. IMPRESSION: 1. No acute fracture. 2. Osteoarthrosis of acromioclavicular joint. POS: JIN
--- NOTE | 2019-08-22 16:06 | RAD ---
RADIOGRAPH RIGHT SHOULDER 3 VIEWS: 08/22/19 HISTORY: 89-year-old female with acute traumatic right shoulder pain due to fall. FINDINGS: No dislocation. No fracture is identified. Metallic anchor embedded deep in the humeral head. Moderat e to severe DJD at AC joint. Mild DJD at glenohumeral joint. IMPRESSION: 1. No fracture identified. 2. Osteoporosis. 3. Status post rotator cuff repair. 4. Osteoarthrosis of acromioclavicular joint. POS: JIN
--- NOTE | 2019-08-22 16:31 | RAD ---
EXAM: RIGHT HAND THREE VIEWS: 08/22/19 HISTORY: Injury from a mechanical fall. COMPARISON: 11/24/17. FINDINGS: Very severe bone demineralization with osteoarthrosis and degenerative change. Arthrosis of the trisc aphe region and the trapezium first metacarpal joint. There is some minimal irregularity of the dista l radius both on the radial side and the dorsal side. I cannot totally exclude the possibility that t his could represent a nondisplaced fracture particularly given the bone demineralization. IMPRESSION: Possible nondisplaced distal radial fracture. Correlate clinically. Consider short term follow-up fredrick dy in 5-7 days. Bone demineralization. Osteoarthrosis and degenerative change. POS: RRE
--- NOTE | 2019-08-22 16:34 | RAD ---
RADIOGRAPH RIGHT WRIST 3 VIEWS: 08/22/19 at 3:34 p.m. HISTORY: 89-year-old female status post acute traumatic pain to wrist from fall. FINDINGS: Obliquely oriented linear faint lucency at the dorsal aspect of the distal radial metaphysis and epip hysis on lateral view. Slight cortical overlap at ulnar side of the distal radial metaphysis on obliq ue view. Soft tissue swelling at dorsum of the wrist. No dislocation. Severe DJD first CMC. IMPRESSION: 1. Questionable nondisplaced or minimally displaced acute fracture of distal radial metaphysis. 2. Distal to that, there is dorsal soft tissue wrist contusion. 3. Severe osteoarthrosis of first carpometacarpal joint. POS: JIN
--- NOTE | 2019-08-22 16:36 | CT ---
EXAM: BRAIN CT WITHOUT IV CONTRAST: 08/22/19 HISTORY: Injury from trauma, fall. FINDINGS: Minimal superficial soft tissue swelling over the left infraorbital region. There is some atrophy and chronic white matter ischemic changes and some generalized ventriculomegaly. Stable minimal dilatati on of the distal basilar artery. No mass or midline shift. No intra or extra-axial hemorrhage. IMPRESSION: 1. Left infraorbital soft tissue subcutaneous swelling. 2. Atrophy and chronic white matter ischemic changes. 3. Stable mild dilatation of the distal basilar artery. POS: RRE
== END 2019-08-22 17:48 | disposition home or self-care (01) ==
LOC: ERS 14:58
DX: S52.501A Unspecified fracture of the lower end of right radius, initial encounter for closed fracture (principal); S00.83XA Contusion of other part of head, initial encounter; M25.511 Pain in right shoulder; I48.91 Unspecified atrial fibrillation; M19.90 Unspecified osteoarthritis, unspecified site; K21.9 Gastro-esophageal reflux disease without esophagitis; Z79.82 Long term (current) use of aspirin; Z79.01 Long term (current) use of anticoagulants; Z79.899 Other long term (current) drug therapy; W01.0XXA Fall on same level from slipping, tripping and stumbling without subsequent striking against object, initial encounter
CPT/HCPCS: 29125; 70450; 96374; 96375; J2270; J2405

== ENCOUNTER 2019-08-26 13:33 | Emergency (ER) | payer MEDICARE, OTHER ==
[2019-08-26 14:27] LABS: #Eosinphils 0.2 thou/uL (0.0-0.7); #Lymphocytes 1.2 thou/uL (1.20-3.40); #Monocytes 0.4 thou/uL (0.11-0.59); #Neutrophils 3.7 thou/uL (1.40-6.50); %Basophils 0.6 % (0.0-1.0); %Eosinophils 3.7 % (0.0-10.0); %Lymphocytes 21.4 % (21.0-51.0); %Monocytes 7.3 % (0.0-10.0); %Neutrophils 67.1 % (42.0-75.0); Hemoglobin 10.5 g/dL (12.0-16.0); Mean Corpuscular HGB CONC 30.8 g/dL (32.0-36.0); Mean Corpuscular Hemoglobin 24.1 pg (27.0-31.0); Mean Corpuscular Volume 78.3 fL (78.0-98.0); Mean Platelet Volume 8.7 fL (7.4-10.4); Platelet Count 241 thou/uL (130-400); RBC Distribution Width 15.4 % (11.5-14.5); Red Blood Cell (RBC) Count 4.37 mill/uL (4.20-5.40); White Blood Cell (WBC) Count 5.5 thou/uL (4.8-10.8)
[2019-08-26 14:33] LABS: INR-International Normal Ratio 1.3; PTT 36.5 sec (22.9-36.1); Prothrombin Time 16.4 sec (12.0-14.7)
[2019-08-26 14:46] LABS: ALT (SGPT) 13 U/L (8-55); AST (SGOT) 34 U/L (5-34); Albumin 4.1 g/dL (3.4-4.8); Alkaline Phosphatase 96 U/L (40-110); Anion Gap 15 mmol/L (10-20); BUN (Urea Nitrogen) 22 mg/dL (9.8-20.1); Bilirubin, Total 0.6 mg/dL (0.2-1.2); Calc. Creatinine Clearance 0 mL/min (70-130); Calcium 9.5 mg/dL (7.8-10.44); Carbon Dioxide 26 mmol/L (23-31); Chloride 101 mmol/L (98-107); Estimated GFR-MDRD 53; Globulin 3.2 g/dL (2.4-3.5); Glucose 104 mg/dL (83-110); Potassium 3.8 mmol/L (3.5-5.1); Protein, Total 7.3 g/dL (6.0-8.3); Sodium 138 mmol/L (136-145)
--- NOTE | 2019-08-26 17:42 | ULT ---
EXAM: COMPLETE PELVIC ULTRASOUND INCLUDING TRANSABDOMINAL, TRANSVAGINAL, AND VASCULAR DUPLEX WITH COLOR AND SPECTRAL DOPPLER IMAGIN08/26/19 HISTORY: Vaginal bleeding. Uterus measures 5.4 x 3.2 x 2.4 cm with an endometrium measuring 0.4 cm. Right ovary measures 1.1 x 1.2 x 1.9 cm. Left ovary measures 2.0 x 2.3 x 2.1 cm and contains some minimal linear debris. No absc ess or abnormal fluid collection. Vascular flow is documented in both ovaries. No evidence for ovarian torsion. IMPRESSION: Small left ovarian slightly complicated appearing cyst. No other significant acute process. POS: RRE
== END 2019-08-26 18:30 | disposition home or self-care (01) ==
LOC: ERS 13:33
DX: N93.8 Other specified abnormal uterine and vaginal bleeding (principal); I48.91 Unspecified atrial fibrillation; K21.9 Gastro-esophageal reflux disease without esophagitis; M19.90 Unspecified osteoarthritis, unspecified site; M41.9 Scoliosis, unspecified; Z85.038 Personal history of other malignant neoplasm of large intestine; Z79.82 Long term (current) use of aspirin; Z79.891 Long term (current) use of opiate analgesic; Z79.899 Other long term (current) drug therapy; Z79.01 Long term (current) use of anticoagulants
CPT/HCPCS: 36415; 76856; 80053; 85025; 85610; 85730

== ENCOUNTER 2019-11-20 16:50 | Emergency (ER) | payer MEDICARE, OTHER ==
[2019-11-20] MEDS ORDERED: HYDROcodone/Acetaminophen 5/325 mg Tablet ONE (17:42)
[2019-11-20 18:11] LABS: #Eosinphils 0.1 thou/uL (0.0-0.7); #Lymphocytes 1.1 thou/uL (1.20-3.40); #Monocytes 0.5 thou/uL (0.11-0.59); #Neutrophils 8.4 thou/uL (1.40-6.50); %Basophils 0.1 % (0.0-1.0); %Eosinophils 0.9 % (0.0-10.0); %Lymphocytes 11.2 % (21.0-51.0); %Monocytes 4.6 % (0.0-10.0); %Neutrophils 83.1 % (42.0-75.0); Hemoglobin 10.2 g/dL (12.0-16.0); Mean Corpuscular HGB CONC 32.1 g/dL (32.0-36.0); Mean Corpuscular Hemoglobin 25.4 pg (27.0-31.0); Mean Platelet Volume 7.6 fL (7.4-10.4); Platelet Count 251 thou/uL (130-400); RBC Distribution Width 13.7 % (11.5-14.5); Red Blood Cell (RBC) Count 4.04 mill/uL (4.20-5.40); White Blood Cell (WBC) Count 10.1 thou/uL (4.8-10.8)
--- NOTE | 2019-11-20 18:18 | RAD ---
XR Hand Lt 3 View STANDARD History: Fall Comparison: Radiograph 2018 Findings: No acute displaced fracture or malalignment is moderate narrowing of the radiocarpal joint. Mild widening of the scapholunate interval. Impression: No acute fracture or malalignment.
--- NOTE | 2019-11-20 18:23 | RAD ---
XR Ankle Lt 3 View STANDARD History: Fall Comparison: None. Findings: Old deltoid ligament injury. Concern for nondisplaced transversely oriented distal fibular fracture below the syndesmosis. Moderate flatfoot deformity. Impression: Concern for nondisplaced transversely oriented distal fibular fracture below the syndesmo sis.
--- NOTE | 2019-11-20 18:24 | RAD ---
XR Elbow Lt 2 View History: Fall Comparison: None. Findings: Exam is limited due to non true views. No significant joint effusion on the limited lateral radiograph. No definite acute fracture or malalignment. Impression: Within the limits of this examination no acute displaced fracture or malalignment.
--- NOTE | 2019-11-20 18:25 | RAD ---
XR Shoulder Lt 3 View STANDARD History: Fall Comparison: Radiograph August 22, 2019 Findings: Fracture through the surgical neck left humerus with extensive comminution and extension to the greater trochanter. Moderate varus angulation. Impression: Comminuted displaced surgical neck fracture of the humerus.
[2019-11-20 18:32] LABS: ALT (SGPT) Less than 7 U/L (8-55); AST (SGOT) 17 U/L (5-34); Alkaline Phosphatase 95 U/L (40-110); Anion Gap 14 mmol/L (10-20); BUN (Urea Nitrogen) 14 mg/dL (9.8-20.1); Bilirubin, Total 0.5 mg/dL (0.2-1.2); Calc. Creatinine Clearance 0 mL/min (70-130); Calcium 9.3 mg/dL (7.8-10.44); Carbon Dioxide 26 mmol/L (23-31); Chloride 105 mmol/L (98-107); Estimated GFR-MDRD 64; Globulin 2.8 g/dL (2.4-3.5); Glucose 130 mg/dL (83-110); Potassium 3.6 mmol/L (3.5-5.1); Protein, Total 6.8 g/dL (6.0-8.3); Sodium 141 mmol/L (136-145)
[2019-11-20] MEDS ORDERED: Morphine 2 MG/ML VIAL ONE (19:17)
[2019-11-20] MEDS ORDERED: Ondansetron PF 4 MG/2 ML Vial ONE (19:17)
--- NOTE | 2019-11-20 20:14 | CT ---
CT Chest Abd Pelvis W Con Limited CT thoracic spine with contrast Limited CT lumbosacral spine with contrast History: Fall Comparison: None. Findings: Left humeral surgical neck fracture. Moderate levoscoliosis of the thoracolumbar junction. No definite thoracic or lumbar spine compression deformity. The sternum and manubrium are intact. No acute displaced rib fracture. Healing left anterior third, fourth, fifth, sixth rib fractures. No confluent airspace consolidation, pneumothorax or effusion. Mild atelectatic changes within the me dial basal left lower lobe. Mildly tortuous aorta. No acute aortic injury. Moderate stool burden throughout the sigmoid colon. No free intraperitoneal gas or fluid. Suture is noted of the descending colon. Numerous cysts throughout the liver, some of which have peripheral calcifications. No hydronephrosis. No splenic injury. Small nodule left adrenal gland. Small posterior gastric diverticulum. Small left lateral thigh contusion. Obturator rings are intact. Sacrum is intact. No SI joint widenin g. No pubic symphyseal widening. No lumbar spine transverse process fracture. Celiac trunk and superior mesenteric arteries are patent. Small peripherally calcified splenic artery aneurysm. Mild f atty atrophy of the pancreas. Impression: 1. Left surgical humeral neck fracture and subtle left thigh contusion otherwise no acute traumatic a bnormality within the chest, abdomen or pelvis. 2. Healing left rib fractures. 3. Numerous hepatic cysts with a peripheral hypodense wedge-shaped area of decreased attenuation with mild biliary dilatation. Nonemergent liver protocol MRI recommended if clinically warranted. This area is relatively similar to the [address] examinations.
--- NOTE | 2019-11-20 21:49 | CT ---
CT HEAD NONCONTRAST: Date: 11/20/2019 HISTORY: Fall. Injury. COMPARISON: 08/22/2019. FINDINGS: There is no evidence of acute intracranial hemorrhage or infarct. Diffuse cortical atrophy and chroni c ischemic small vessel disease are again demonstrated. Lacunar infarct at the left basal ganglia has progressed slightly since the prior study. There is no mass effect or shift of midline structures. Visualized paranasal sinuses remain well aera quin. IMPRESSION: No acute intracranial abnormalities are demonstrated. POS: BST
--- NOTE | 2019-11-20 21:51 | CT ---
CT CERVICAL SPINE NONCONTRAST: Date: 11/20/2019 HISTORY: Fall. Injury. FINDINGS: Vertebral body heights and AP alignment are maintained. There is rightward convex curvature similar i n appearance to the prior study. Cervicothoracic junction is intact. There is osteophytosis throughout the vertebral bodies and facets . No acute fracture or dislocation. Lobular cystic lesions within the right thyroid lobe appear stable. IMPRESSION: Degenerative changes of the cervical spine. No acute osseous abnormalities are demonstrated. POS: BST
== END 2019-11-21 01:45 ==
LOC: ERS 16:50
DX: S42.212A Unspecified displaced fracture of surgical neck of left humerus, initial encounter for closed fracture (principal); K21.9 Gastro-esophageal reflux disease without esophagitis; Z79.899 Other long term (current) drug therapy; Z79.82 Long term (current) use of aspirin; W18.30XA Fall on same level, unspecified, initial encounter
CPT/HCPCS: 70450; 71260; 72125; 73030; 73070; 73130; 73610; 74177; 80053; 85025; 96374; 96375; 99285; J2270; 36415; J2405

== ENCOUNTER 2020-03-03 10:53 | Inpatient (IN) | payer MEDICARE, OTHER ==
--- NOTE | 2020-03-03 12:29 | PDOC.FPRHP ---
- History of Present Illness Chief Complaint: anemia History of Present Illness: Pt is a 89 yo F with a PMH depression, HTN, Afib, pacemaker, HF, constipation, chronic back pain, GERD, hepatic cysts, adenocarcinoma of colon s/p colectomy who presents after routine lab results showed a Hgb of 5.3. She denies any bleeding, other than a one night episode with "minimal" vaginal bleeding. Patient denies any symptoms and endorses a chronic history of anemia, usually with a Hgb >8. She denies CP, SOB, dizziness, palpitations, melena, bright red blood per rectum, N/V. She has not followed up with a GI since her colectomy in 2014. She denies hysterectomy. ED Course: s/p 2u pRBCs - Allergies/Adverse Reactions Allergies Allergy/AdvReac Type Severity Reaction Status Date / Time erythromycin base Allergy Verified 04/30/19 12:03 hydromorphone [From Dilaudid] Allergy Verified 04/30/19 12:03 morphine Allergy Verified 04/30/19 12:03 - Home Medications Medication Instructions Recorded Confirmed Type Flecainide [Tambocor] 50 mg PO BID 11/24/17 05/03/19 History Furosemide 40 mg PO DAILY 11/24/17 05/03/19 History HYDROcodone Bit/APAP 10/325 [[place]] 2 tab PO Q6HR PRN 11/24/17 05/03/19 History Icosapent Ethyl [Vascepa] 0.5 gm PO BID 11/24/17 05/04/19 History Metoprolol Tartrate 50 mg PO DAILY 11/24/17 05/03/19 History Sertraline HCl 100 mg PO DAILY 11/24/17 05/03/19 History Apixaban [Eliquis] 5 mg PO BID 05/03/19 05/03/19 History Cephalexin [Keflex] 500 mg PO Q12H #14 cap 05/06/19 Rx Pantoprazole [Protonix] 40 mg PO DAILY 05/06/19 05/06/19 History Saccharomyces boulardii [Florastor] 250 mg PO DAILY #14 cap 05/06/19 Rx - History PMHx: depression, HTN, Afib, pacemaker, HF, constipation, chronic back pain, GERD, hepatic cysts, adenocarcinoma of colon PSHx: colectomy, cholecystectomy, hemmorhoidectomy, 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 denies: chest pain, palpitation Gastrointestinal: denies: nausea, vomiting, diarrhea, abdominal pain, GI bleeding Genitourinary: denies: incontinence, dysuria, polyuria Skin: reports: other. denies: rashes Musculoskeletal: denies: pain Neurological: denies: syncope, seizure, weakness Psychological: denies: anxiety, depression - Vital signs BP: 139/80 HR: 72 RR: 16 Tmax: 98.4 Pox: 100% on RA Wt:80kg - Physical Exam Constitutional: NAD, awake, alert and oriented -Constitutional: pale HEENT: normocephalic and atraumatic, PERRLA, EOMI, other (dry mucous membranes) -HEENT: conjunctival pallor Chest: no-tender to palpation, no lesions Heart: RRR, normal S1/S2, no murmurs/rubs/gallops, pulses present, no edema Lungs: CTAB, no respiratory distress Abdomen: soft, non-tender, bowel sounds present, no masses/distention Musculoskeletal: normal structure, normal tone Neurological: no focal deficit, CN II-XII intact Skin: no rash/lesions Heme/Lymphatic: no unusual bruising or bleeding Psychiatric: normal mood and affect, good judgment and insight FMR H&P: Results - Labs Result Diagrams: 03/03/20 12:52 - EKG Interpretation EKG: paced, no ST changes Rate in the 60s FMR H&P: A/P - Problem List (1) Acute on chronic anemia Current Visit: Yes Status: Acute Code(s): D64.9 - ANEMIA, UNSPECIFIED (2) Atrial fibrillation Current Visit: Yes Status: Chronic Code(s): I48.91 - UNSPECIFIED ATRIAL FIBRILLATION Comment: Rate controlled. Off Eliquis now due to falls. (3) Dementia Current Visit: Yes Status: Chronic Code(s): F03.90 - UNSPECIFIED DEMENTIA WITHOUT BEHAVIORAL DISTURBANCE (4) Dyslipidemia Current Visit: Yes Status: Chronic Code(s): E78.5 - HYPERLIPIDEMIA, UNSPECIFIED - Plan acute worsening of chronic anemia -Hgb of 5.3 -unsure of source of bleeding at this time. GI vs malignancy vs vaginal -Type and Cross, s/p 2U pRBCs -follow up H/H 4 hours from transfusion -Follow up FOBT -hold home ASA and Eliquis -follow up iron studies, folate/B12 and peripheral smear depression -aware, continue home meds HTN -aware, continue home meds Afib -aware, hold home Eliquis for tonight, pending FOBT HF with pacemaker -aware, continue home meds constipation -aware, stool regimen ordered chronic back pain -aware, continue home meds GERD -aware, continue home meds hepatic cysts -aware, s/p many surgeries adenocarcinoma of colon s/p colectomy -aware, consider possible bleeding from colon in differential Fluids: KVO DVT ppx: SCDs Diet: PCP: Michael Dispo: admit to medical inpatient pending improvement of H/H and to identify source of anemia FMR H&P: Upper Level - Plan Date/Time: 03/03/20 1229 89 y/o [facility] patient, presents to ER after critical lab level of hgb 5.3 was found on recent labs. Pt states she has had anemia requiring blood transfusion before. PT denies any rectal bleeding, bloody emesis, dark stools. She does state that she had one episode of what se thought was vaginal bleeding that lasted one night, that self resolved. PT denies SOB, CP, dizziness, LH, SOB with exertion. 1. Acute worsening of chronic anemia - Hg 5.3, transfusion of 2 units pRBCs ordered in ER - Iron, TIBC, %sat and b12/folate ordered. - Peripheral smear ordered - FOBT added to workup, will discuss possible GI consult if positive to find source of anemia - hold asa and eliquis, no bubba bleeding confirmed at this time. Other chronic conditions as stated by internet media planner note I agree with. I, Fatmata Sands, have evaluated this patient and agree with findings/plan as outlined by internet media planner resident. Pertinent changes/additions are listed here. Addendum - Attending - Attending Attestation Date/Time: 03/03/20 4588 I personally evaluated the patient and discussed the management with the team. I agree with the History, Examination, Assessment and Plan documented above with any addition or exceptions noted below. Discuss with Dr. Rodriguez. Will need postmenopausal bleeding w/u as an outpatient. Possible GI consult.
[2020-03-03] MEDS ORDERED: Ondansetron ODT 4 MG TAB PO PRN (12:30)
[2020-03-03] MEDS ORDERED: Acetaminophen 325 MG TAB PO PRN (12:30)
[2020-03-03] MEDS ORDERED: Ondansetron PF 4 MG/2 ML Vial IVP PRN (12:30)
[2020-03-03 13:15] LABS: Hemoglobin 5.6 g/dL (12.0-16.0); Mean Corpuscular HGB CONC 29.5 g/dL (32.0-36.0); Mean Corpuscular Hemoglobin 18.9 pg (27.0-31.0); Mean Corpuscular Volume 64.2 fL (78.0-98.0); Mean Platelet Volume 9.6 fL (7.4-10.4); Platelet Count 289 thou/uL (130-400); RBC Distribution Width 16.7 % (11.5-14.5); Red Blood Cell (RBC) Count 2.94 mill/uL (4.20-5.40); White Blood Cell (WBC) Count 7.2 thou/uL (4.8-10.8)
[2020-03-03 13:22] LABS: Iron 8 ug/dL (50-170); Iron Binding Capacity, Total 438 mcg/dL (265-497)
[2020-03-03 13:44] LABS: Ferritin 15.21 ng/mL (10-291)
[2020-03-03 13:45] LABS: Anisocytosis SLIGHT = 6-15 cells (100X) (0-5/hpf); Elliptocytes SLIGHT = 2-5 cells (100X) (0-1/hpf); Eosinophils 6 % (0-10); Hypochromia MODERATE=16-30 cells (100X) (0-5/hpf); Lymphocytes 15 % (21-51); MDiff Complete? YES; Microcytosis SLIGHT = 6-15 cells (100X) (0-5/hpf); Monocytes 6 % (0-10); Neutrophil 72 % (42-75); Ovalocytes SLIGHT = 2-5 cells (100X) (0-1/hpf); Platelet Morphology Comment Appears Adequate; Poikilocytosis SLIGHT = 6-15 cells (100X) (0-5/hpf); Schistocytes SLIGHT = 2-5 cells (100X) (0-1/hpf); Spherocytes SLIGHT = 1-5 cells (100X) (None Seen)
[2020-03-04 01:59] LABS: SARS-CoV-2 PCR by NAA Not Detected (NotDetected)
[2020-03-04 02:39] LABS: Hemoglobin 8.4 g/dL (12.0-16.0)
[2020-03-04 06:00] LABS: #Eosinphils 0.4 thou/uL (0.0-0.7); #Lymphocytes 1.3 thou/uL (1.20-3.40); #Monocytes 0.6 thou/uL (0.11-0.59); #Neutrophils 5.6 thou/uL (1.40-6.50); %Basophils 0.3 % (0.0-1.0); %Eosinophils 5.4 % (0.0-10.0); %Lymphocytes 15.8 % (21.0-51.0); %Monocytes 7.5 % (0.0-10.0); %Neutrophils 71.1 % (42.0-75.0); Hemoglobin 8.3 g/dL (12.0-16.0); Mean Corpuscular HGB CONC 30.2 g/dL (32.0-36.0); Mean Corpuscular Hemoglobin 21.1 pg (27.0-31.0); Mean Corpuscular Volume 69.8 fL (78.0-98.0); Mean Platelet Volume 9.8 fL (7.4-10.4); Platelet Count 285 thou/uL (130-400); RBC Distribution Width 20.9 % (11.5-14.5); Red Blood Cell (RBC) Count 3.91 mill/uL (4.20-5.40); White Blood Cell (WBC) Count 7.9 thou/uL (4.8-10.8)
[2020-03-04 06:24] LABS: ALT (SGPT) 8 U/L (8-55); AST (SGOT) 19 U/L (5-34); Albumin 3.8 g/dL (3.4-4.8); Alkaline Phosphatase 118 U/L (40-110); Anion Gap 14 mmol/L (10-20); BUN (Urea Nitrogen) 16 mg/dL (9.8-20.1); Bilirubin, Total 1.1 mg/dL (0.2-1.2); Calc. Creatinine Clearance 68 mL/min (70-130); Carbon Dioxide 23 mmol/L (23-31); Chloride 105 mmol/L (98-107); Globulin 2.9 g/dL (2.4-3.5); Glucose 97 mg/dL (83-110); Potassium 3.5 mmol/L (3.5-5.1); Protein, Total 6.7 g/dL (5.8-8.1); Sodium 138 mmol/L (136-145)
[2020-03-04] MEDS ORDERED: traMADol HCl 50 MG TAB PO PRN (07:34)
--- NOTE | 2020-03-04 07:41 | PDOC.FM ---
- Subjective Subjective: Pt pleasantly confused this morning on her location has blood around her lips dry today, does not remember how it got there, but thinks she bites her lip at night. Nurse does not report any emesis overnight no acute overnight events Iron studies returned with TY repeat h/h 8.3/27.3 - Objective Vital Signs & Weight: Vital Signs (12 hours) Temp Pulse Resp BP Pulse Ox 03/04/20 04:03 98.7 F 70 18 147/88 H 98 03/04/20 00:35 97.7 F 94 18 174/97 H 99 03/04/20 00:07 99.1 F 94 18 155/84 H 97 03/03/20 20:50 98.4 F 62 18 150/81 H 99 03/03/20 20:00 99 Weight Weight 79.4 kg I&O: 03/03/20 03/04/20 03/05/20 06:59 06:59 06:59 Output Total 1550 Balance -1550 Result Diagrams: 03/04/20 05:12 03/04/20 05:12 Phys Exam - Physical Examination Constitutional: NAD disoriented to place and situation. HEENT: PERRLA dry MM with dried blood on lips, none in mouth. Neck: supple Respiratory: no wheezing, no rales, no rhonchi, clear to auscultation bilateral Cardiovascular: RRR, no rub Gastrointestinal: soft, non-tender, no distention, positive bowel sounds Musculoskeletal: pulses present Neurological: moves all 4 limbs Psychiatric: normal affect Deviation from normal: oriented to person Skin: cap refill <2 seconds Deviation from normal: conjunctival pallor Dx/Plan (1) Acute on chronic anemia Code(s): D64.9 - ANEMIA, UNSPECIFIED Status: Acute (2) Atrial fibrillation Code(s): I48.91 - UNSPECIFIED ATRIAL FIBRILLATION Status: Chronic (3) Dementia Code(s): F03.90 - UNSPECIFIED DEMENTIA WITHOUT BEHAVIORAL DISTURBANCE Status: Chronic (4) Dyslipidemia Code(s): E78.5 - HYPERLIPIDEMIA, UNSPECIFIED Status: Chronic - Plan Plan: 1. Acute worsening of chronic iron deficiency anemia - Hg 5.3, transfusion of 2 units pRBCs ordered in ER - Iron 8, TIBC 438, 2% iron sat and b12/folate nlm. consistent with TY - Peripheral smear ordered, pending - FOBT added to workup, GI consult this morning. Appreciate recommendations. - hold asa and eliquis, no bubba GI bleeding confirmed at this time, therefore did not put on IV protonix - received 2 units pRBC's, repeat H/H 03/04: 8.3/27.3 - iron infusion ordered 03/04. continue PO iron and added vit C. depression -aware, continue home meds HTN -aware, continue home meds Afib -aware, hold home Eliquis and ASA, pending FOBT HF with pacemaker -aware, continue home meds constipation -aware, stool regimen ordered, hold home norco chronic back pain -aware, continue home meds GERD -aware, continue home meds hepatic cysts -aware, s/p many surgeries adenocarcinoma of colon s/p colectomy -aware, consider possible bleeding from colon in differential Fluids: KVO DVT ppx: SCDs Diet: HH PCP: Michael Dispo: admit to medical inpatient Addendum - Attending - Attending Attestation Date/Time: 03/04/20 1256 I personally evaluated the patient and discussed the management with Dr. Sands I agree with the History, Examination, Assessment and Plan documented above with any addition or exceptions noted below - Patient without complaints. Tolerating diet. Afebrile VSS. A/P: 1) Iron deficiency anemia - uncertain cause- s/p 2u pRBCs- H/H=8.3/27.3. Continue to monitor. Will consult GI for possible GI loss as cause of anemia 2) HTN- stable; continue home meds 3) H/o colon cancer
[2020-03-04] MEDS ORDERED: Iron, Sodium Ferric Gluconate 250 MG in Sodium Chloride 0.9% 100 ML IVPB SCH (07:45)
[2020-03-04] MEDS ORDERED: Iron Sucrose Complex 200 MG in Sodium Chloride 0.9% 100 ML IVPB SCH (07:45)
[2020-03-04] MEDS: Flecainide 50 MG TAB PO SCH ×2 (08:54→21:05)
[2020-03-04] MEDS: Polyethylene Glycol 3350 17 GM Packet PO SCH (08:55)
[2020-03-04] MEDS: Furosemide 80 MG TAB PO SCH (08:56)
[2020-03-04] MEDS: Potassium Chloride 20 MEQ TAB PO SCH (08:56)
[2020-03-04] MEDS: Fish Oil 1,000 MG CAP PO SCH ×2 (08:56→21:06)
[2020-03-04] MEDS: Ascorbic Acid 500 mg Chewable Tablet PO SCH (08:56)
[2020-03-04] MEDS: Ferrous Fumarate 324 MG TAB PO SCH (08:57)
[2020-03-04] MEDS: Icosapent Ethyl 1 GM CAPSULE PO SCH ×2 (08:57→21:05)
[2020-03-04] MEDS ORDERED: Non-Formulary Item 1 EACH (Icosapent Ethyl 1 GM Capsule) PO SCH (09:00)
[2020-03-04] MEDS ORDERED: Non-Formulary Item 1 EACH (Omeprazole [Omeprazole] 20 MG Capsule.Dr) PO SCH (09:00)
[2020-03-04] MEDS ORDERED: FLU VACC QS2020-21(65YR UP)/PF 240 MCG/0.7 ML SYRINGE IM ONE (09:00)
[2020-03-04] MEDS ORDERED: Non-Formulary Item 1 EACH (Potassium Chloride [Potassium Chloride] 20 MEQ Tablet.Er) PO SCH (09:00)
[2020-03-04] MEDS: Lidocaine 5% Patch TD SCH (13:10)
[2020-03-04 14:27] VITALS: BMI 26.3
[2020-03-04] MEDS ORDERED: Non-Formulary Item 1 EACH (Melatonin [Melatonin] 10 MG Tablet) PO SCH (21:00)
[2020-03-04] MEDS: Melatonin 3 MG TAB PO SCH (21:05)
[2020-03-04] MEDS: Lidocaine Patch Removal 1 EACH TOP SCH (21:06)
[2020-03-04] MEDS: Donepezil HCl 5 MG TAB PO SCH (21:06)
--- NOTE | 2020-03-05 01:10 | CON ---
DATE OF CONSULTATION: 03/04/2020 CHIEF COMPLAINT: Anemia. HISTORY OF PRESENT ILLNESS: Ms. Olea is an 89-year-old woman, who had routine blood work yesterday, was found to have severe anemia with a hemoglobin of 5.3. She has a history of atrial fibrillation, has been on Eliquis previously but apparently has not been on Eliquis recently due to falls. She has had no overt GI bleeding. No red blood in the stool or black stools. No nausea or vomiting, or diarrhea or constipation. No abdominal pain or weight loss. She received a couple units transfusion and her hemoglobin improved to 8.3. PAST MEDICAL HISTORY: She had stage I adenocarcinoma that was cured by colectomy. Last colonoscopy was in 2014. She had upper endoscopy at that time as well, which was negative. She has a history of atrial fibrillation and hypertension and CHF. She has had cysts in her liver that have been drained and resected in the past. 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 FAMILY HISTORY: Negative for GI malignancies. SOCIAL HISTORY: No alcohol, tobacco, or drugs. ALLERGIES: ERYTHROMYCIN, MORPHINE, HYDROMORPHONE. MEDICATIONS: Inpatient medications include, 1. Vitamin C. 2. Aricept. 3. Ferrous fumarate. 4. Fish oil. 5. Flecainide. 6. Furosemide. 7. Lidocaine. 8. Melatonin. 9. Metoprolol. 10. Lidocaine patch. 11. Vascepa. 12. Pantoprazole 40 mg daily. 13. MiraLAX 17 g daily. 14. Sertraline. 15. Potassium. REVIEW OF SYSTEMS: Negative x10 systems reviewed except as stated in history of present illness. PHYSICAL EXAMINATION: VITAL SIGNS: Temperature is 98.3, pulse 62, blood pressure 115/67. GENERAL: She is in no acute distress. Alert and awake, but she is not oriented to the place. She thought she was in [place]. She is oriented to the year and her name. HEENT: Her eyes have no scleral icterus. Oropharynx is clear without lesions. No cervical or supraclavicular lymphadenopathy. LUNGS: Clear to auscultation bilaterally. HEART: Regular rate and rhythm without murmur. ABDOMEN: Soft, nontender, and nondistended. Bowel sounds are present. EXTREMITIES: No lower extremity edema. LABORATORY DATA: White blood cell count 7.9, hemoglobin 8.3, MCV 69, platelets 285, creatinine 0.72, iron 8, TIBC 438, ferritin 15, albumin 3.8. IMPRESSION: 1. Iron deficiency anemia. She has been on Eliquis previously, but apparently, this has been off lately due to falls. She has not had overt GI bleeding. 2. History of colon cancers, status post resection of stage I tumor back in 2015. 3. Dementia, seems to be fairly mild on initial visit. RECOMMENDATIONS: EGD and colonoscopy. I will place her on a clear liquid diet for tomorrow, and we could potentially plan for a bowel prep tomorrow evening for EGD and colonoscopy on Saturday. I have tried calling her daughter but has been unable to reach her on multiple attempts. We will try again tomorrow. Job ID: [id number]
[2020-03-05 06:23] LABS: ALT (SGPT) 8 U/L (8-55); AST (SGOT) 17 U/L (5-34); Albumin 3.7 g/dL (3.4-4.8); Alkaline Phosphatase 120 U/L (40-110); Anion Gap 14 mmol/L (10-20); BUN (Urea Nitrogen) 14 mg/dL (9.8-20.1); Bilirubin, Total 0.8 mg/dL (0.2-1.2); Calc. Creatinine Clearance 55 mL/min (70-130); Calcium 9.3 mg/dL (7.8-10.44); Carbon Dioxide 24 mmol/L (23-31); Chloride 105 mmol/L (98-107); Globulin 2.8 g/dL (2.4-3.5); Glucose 104 mg/dL (83-110); Potassium 3.4 mmol/L (3.5-5.1); Protein, Total 6.5 g/dL (5.8-8.1); Sodium 140 mmol/L (136-145)
[2020-03-05 06:45] LABS: Band 1 % (5-11); Eosinophils 4 % (0-10); Hemoglobin 8.3 g/dL (12.0-16.0); Lymphocytes 20 % (21-51); MDiff Complete? YES; Mean Corpuscular HGB CONC 30.8 g/dL (32.0-36.0); Mean Corpuscular Hemoglobin 21.4 pg (27.0-31.0); Mean Corpuscular Volume 69.5 fL (78.0-98.0); Monocytes 10 % (0-10); Neutrophil 65 % (42-75); Platelet Count 248 thou/uL (130-400); Platelet Morphology Comment Appears Adequate; RBC Distribution Width 21.4 % (11.5-14.5); White Blood Cell (WBC) Count 6.9 thou/uL (4.8-10.8)
--- NOTE | 2020-03-05 07:03 | PDOC.FM ---
- Subjective Subjective: Pt is doing well today. She is hungry and has no other complaints. She denies overt bleeding, fever, chills, N/V. - Objective Vital Signs & Weight: Vital Signs (12 hours) Temp Pulse Resp BP Pulse Ox 03/04/20 23:38 98.3 F 70 18 126/84 96 03/04/20 20:30 97 03/04/20 19:48 98.3 F 62 18 115/67 97 Weight Admit Weight 79.379 kg Weight 67.449 kg I&O: 03/03/20 03/04/20 03/05/20 06:59 06:59 06:59 Intake Total 890 Output Total 1550 700 Balance -1550 190 Result Diagrams: 03/05/20 05:51 03/05/20 05:51 Phys Exam - Physical Examination Constitutional: NAD HEENT: PERRLA, moist MMs Neck: no JVD, full ROM Respiratory: no wheezing, clear to auscultation bilateral Cardiovascular: RRR, no significant murmur Gastrointestinal: soft, positive bowel sounds Musculoskeletal: no edema, pulses present Neurological: non-focal, normal sensation Psychiatric: normal affect, A&O x 3 Skin: no rash, cap refill <2 seconds Dx/Plan - Plan Plan: # Acute worsening of chronic iron deficiency anemia - Hg 5.3, transfusion of 2 units pRBCs ordered in ER, currently 8.3 and stable s/p 2 U pRBC's, Iron Infusion - Iron 8, TIBC 438, 2% iron sat and b12/folate nlm. consistent with TY - Peripheral smear ordered, pending - GI consulted, Appreciate recommendations. EGD, colonoscopy planned for 03/[address] Wilder although has seen Dr. Desai in the past. - hold asa and eliquis, continue protonix PO # depression -aware, continue home meds # HTN -aware, continue home meds # Afib -aware, hold home Eliquis and ASA # HF with pacemaker -aware, continue home meds # constipation -aware, stool regimen ordered, hold home norco # chronic back pain -aware, continue home meds # GERD -aware, continue home meds # hepatic cysts -aware, s/p many surgeries # adenocarcinoma of colon s/p colectomy -aware, consider possible bleeding from colon in differential Fluids: KVO DVT ppx: SCDs Diet: Clears for procedure and NPO at midnight PCP: Michael Dispo: admit to medical inpatient Addendum - Attending - Attending Attestation Date/Time: 03/05/20 1004 I personally evaluated the patient and discussed the management with Dr. Maki. I agree with the History, Examination, Assessment and Plan documented above with any addition or exceptions noted below.
[2020-03-05] MEDS ORDERED: Potassium Chloride 10 MEQ in Premix Bag 1 BAG IVPB SCH (09:15)
[2020-03-05] MEDS: Furosemide 80 MG TAB PO SCH (09:23)
[2020-03-05] MEDS: Potassium Chloride 20 MEQ TAB PO SCH (09:23)
[2020-03-05] MEDS: Fish Oil 1,000 MG CAP PO SCH ×2 (09:23→21:25)
[2020-03-05] MEDS: Ascorbic Acid 500 mg Chewable Tablet PO SCH (09:23)
[2020-03-05] MEDS: Polyethylene Glycol 3350 17 GM Packet PO SCH ×2 (09:23→09:29)
[2020-03-05] MEDS: Lidocaine 5% Patch TD SCH (09:24)
[2020-03-05] MEDS: Flecainide 50 MG TAB PO SCH ×2 (10:38→22:03)
[2020-03-05] MEDS: Icosapent Ethyl 1 GM CAPSULE PO SCH ×2 (10:38→22:02)
--- NOTE | 2020-03-05 13:48 | PRG ---
DATE OF SERVICE: 03/05/2020 SUBJECTIVE: Ms. Olea has had no abdominal pain or overt bloody stool output. OBJECTIVE: VITAL SIGNS: Temperature 98.0, pulse 70, blood pressure 114/78. GENERAL: She is alert and oriented x3. LUNGS: Clear to auscultation bilaterally. HEART: Regular rate and rhythm without murmur. ABDOMEN: Soft, nontender, nondistended. Bowel sounds are present. EXTREMITIES: No lower extremity edema. LABORATORY DATA: White blood cell count 6.9, hemoglobin 8.3, platelets 248. Creatinine 0.75. IMPRESSION: 1. Iron deficiency anemia. 2. History of atrial fibrillation, on aspirin and Eliquis previously. Those are held currently. She does have a history of falls as well. 3. History of colon cancer, status post resection of stage-I disease. Her last endoscopy was over 5 years ago. RECOMMENDATIONS: We will plan for EGD and colonoscopy tomorrow. Job ID: [id number]
[2020-03-05] MEDS ORDERED: GoLYTELY 4,000 ml Bottle PO SCH (16:00)
[2020-03-05] MEDS: Donepezil HCl 5 MG TAB PO SCH (22:01)
[2020-03-05] MEDS: Lidocaine Patch Removal 1 EACH TOP SCH (22:04)
[2020-03-06] MEDS: Melatonin 3 MG TAB PO SCH (02:34)
--- NOTE | 2020-03-06 05:50 | PDOC.FM ---
- Subjective Subjective: Pt is doing well. She has no complaints. She is ready for colonoscopy, EGD this am. She has no questions about procedure. - Objective Vital Signs & Weight: Vital Signs (12 hours) Temp Pulse Resp BP Pulse Ox 03/06/20 04:00 98.2 F 101 H 14 125/85 98 03/06/20 00:00 97.9 F 99 16 114/74 98 03/05/20 20:00 97.8 F 99 16 129/78 98 Weight Admit Weight 79.379 kg Weight 67.449 kg I&O: 03/04/20 03/05/20 03/06/20 06:59 06:59 06:59 Intake Total 890 1320 Output Total 2049 700 800 Balance -2049 190 520 Result Diagrams: 03/06/20 06:13 03/06/20 06:13 Phys Exam - Physical Examination Constitutional: NAD HEENT: PERRLA, moist MMs Neck: no JVD, full ROM Respiratory: no wheezing, clear to auscultation bilateral Cardiovascular: RRR Gastrointestinal: soft, no distention Musculoskeletal: no edema, pulses present Neurological: non-focal, moves all 4 limbs Psychiatric: normal affect, A&O x 3 Dx/Plan - Plan Plan: # Acute worsening of chronic iron deficiency anemia - Hg 5.3 on admission, currently 8.3 and stable s/p 2 U pRBC's, Iron Infusion - Iron 8, TIBC 438, 2% iron sat and b12/folate nlm. consistent with TY - Peripheral smear ordered, pending - GI consulted, Appreciate recommendations. EGD, colonoscopy planned for 03/[address] Wilder although has seen Dr. Desai in the past. - hold asa and eliquis, continue protonix PO # depression -aware, continue home meds # HTN -aware, continue home meds # Afib -aware, hold home Eliquis and ASA # HF with pacemaker -aware, continue home meds # constipation -aware, stool regimen ordered, hold home norco # chronic back pain -aware, continue home meds # GERD -aware, continue home meds # hepatic cysts -aware, s/p many surgeries # adenocarcinoma of colon s/p colectomy -aware, consider possible bleeding from colon in differential Fluids: KVO DVT ppx: SCDs Diet: per GI PCP: Michael Dispo: admit to medical inpatient Addendum - Attending - Attending Attestation Date/Time: 03/06/20 1014 I personally evaluated the patient and discussed the management with Dr. Maki. I agree with the History, Examination, Assessment and Plan documented above with any addition or exceptions noted below. No cp/sob/n/v/f/c.
[2020-03-06 06:39] LABS: #Eosinphils 0.4 thou/uL (0.0-0.7); #Lymphocytes 1.5 thou/uL (1.20-3.40); #Monocytes 0.7 thou/uL (0.11-0.59); #Neutrophils 7.4 thou/uL (1.40-6.50); %Basophils 0.1 % (0.0-1.0); %Eosinophils 3.8 % (0.0-10.0); %Lymphocytes 14.8 % (21.0-51.0); %Neutrophils 74.4 % (42.0-75.0); Hemoglobin 9.4 g/dL (12.0-16.0); Mean Corpuscular HGB CONC 30.3 g/dL (32.0-36.0); Mean Corpuscular Volume 69.3 fL (78.0-98.0); Platelet Count 277 thou/uL (130-400); RBC Distribution Width 22.5 % (11.5-14.5); Red Blood Cell (RBC) Count 4.47 mill/uL (4.20-5.40)
[2020-03-06 06:56] LABS: ALT (SGPT) 8 U/L (8-55); AST (SGOT) 17 U/L (5-34); Albumin 3.8 g/dL (3.4-4.8); Alkaline Phosphatase 124 U/L (40-110); Anion Gap 14 mmol/L (10-20); BUN (Urea Nitrogen) 13 mg/dL (9.8-20.1); Bilirubin, Total 0.7 mg/dL (0.2-1.2); Calc. Creatinine Clearance 51 mL/min (70-130); Calcium 9.4 mg/dL (7.8-10.44); Carbon Dioxide 28 mmol/L (23-31); Chloride 102 mmol/L (98-107); Globulin 2.9 g/dL (2.4-3.5); Glucose 106 mg/dL (83-110); Potassium 3.1 mmol/L (3.5-5.1); Protein, Total 6.7 g/dL (5.8-8.1); Sodium 141 mmol/L (136-145)
[2020-03-06] MEDS ORDERED: Ondansetron HCl/PF 4 MG/2 ML Vial IVP PRN (09:15)
[2020-03-06] MEDS ORDERED: Promethazine HCl 25 MG/ML VIAL IM PRN (09:15)
[2020-03-06] MEDS ORDERED: Promethazine HCl 25 MG/ML VIAL SLOW IVP PRN (09:15)
[2020-03-06] MEDS ORDERED: PROPOFOL 200 MG/20 ML VIAL ONE (10:31)
[2020-03-06] MEDS: Ascorbic Acid 500 mg Chewable Tablet PO SCH (10:55)
[2020-03-06] MEDS: Fish Oil 1,000 MG CAP PO SCH (10:55)
[2020-03-06] MEDS: Lidocaine 5% Patch TD SCH (10:56)
[2020-03-06] MEDS: Polyethylene Glycol 3350 17 GM Packet PO SCH (10:56)
[2020-03-06] MEDS: Flecainide 50 MG TAB PO SCH (13:08)
[2020-03-06] MEDS: Icosapent Ethyl 1 GM CAPSULE PO SCH (13:08)
[2020-03-06] MEDS: Ferrous Fumarate 324 MG TAB PO SCH (13:08)
[2020-03-06] MEDS: Potassium Chloride 20 MEQ TAB PO SCH (13:09)
[2020-03-06] MEDS: Furosemide 80 MG TAB PO SCH (13:09)
--- NOTE | 2020-03-06 13:19 | OP ---
DATE OF PROCEDURE: 03/06/2020 PROCEDURE PERFORMED: Esophagogastroduodenoscopy and colonoscopy. PREOPERATIVE DIAGNOSES: Iron deficiency anemia, requiring blood transfusion. Also, personal history of colon cancer, status post right colon resection. Also, history of duodenal vascular ectasias back in 2014. DESCRIPTION OF PROCEDURE: Informed consent was obtained from the patient. She was sedated with total intravenous anesthesia. The bite block was placed and the endoscope was advanced easily to the second portion of the duodenum and retroflexion was performed in the stomach. The esophagus was normal. The GE junction was normal. The stomach was normal including retroflexed views. The pylorus and first and second portions of the duodenum were normal. There were no vascular ectasias apparent on today's exam. The patient was turned around. Rectal exam was performed and was normal. The colonoscope was advanced to the terminal ileum without difficulty. The anastomosis appears healthy at the ileocolonic anastomosis in the transverse colon. The preparation quality was good. There was moderate diverticulosis in the sigmoid colon. Retroflexed views in the rectum revealed moderate internal hemorrhoids. Colonoscopy was otherwise negative. IMPRESSION: 1. Normal EGD. 2. Sigmoid diverticulosis. 3. Internal hemorrhoids. 4. Otherwise normal colonoscopy. 5. No source for the iron deficiency anemia was identified on this exam. RECOMMENDATIONS: 1. Iron supplementation. 2. Follow up in the office with Dr. Desai. If her anemia does not respond to iron supplement, then small bowel capsule endoscopy could be considered. Of note, she has been on Eliquis previously. The Eliquis can likely be restarted if it is necessary tomorrow. 3. Advance her diet. 4. I will sign off. Please call if GI can be of assistance. Job ID: [id number]
[2020-03-06 17:37] VITALS: BP 128/79; TEMP 98.2
--- NOTE | 2020-03-07 13:51 | DIS ---
DATE OF ADMISSION: 03/03/2020 DATE OF DISCHARGE: 03/06/2020 RESIDENT: Dave Maki DO ADMITTING ATTENDING: Akira Fox MD DISCHARGE ATTENDING: Leo Cheung MD CONSULT: GI, Dr. Arturo Wilder. PROCEDURES: On 03/06/2020, the patient underwent an esophagogastroduodenoscopy and colonoscopy. Esophagogastroduodenoscopy was normal. Sigmoid diverticulosis, internal hemorrhoids, otherwise normal colonoscopy. No source for the iron deficiency anemia. PRIMARY DIAGNOSES: 1. Iron deficiency anemia. 2. Sigmoid diverticulosis. 3. Internal hemorrhoids. SECONDARY DIAGNOSES: 1. Depression. 2. Hypertension. 3. Atrial fibrillation with Eliquis. 4. Heart failure with pacemaker. 5. Constipation. 6. Chronic back pain. 7. Gastroesophageal reflux disease. 8. Hepatic cyst. 9. Adenocarcinoma of colon status post colectomy. DISCHARGE MEDICATIONS: 1. Lidocaine 5% patch one patch topical daily. 2. [place] 10/325 mg p.o. q.6 hours p.r.n. pain. 3. Aspirin 81 mg p.o. daily. 4. Eliquis 5 mg p.o. b.i.d. 5. Flexeril 7.5 mg p.o. at bedtime. 6. Donepezil 5 mg p.o. q.p.m. 7. Lasix 80 mg p.o. daily. 8. Tambocor 100 mg p.o. b.i.d. 9. Melatonin 10 mg p.o. at bedtime. 10.Vascepa 2 mg p.o. b.i.d. 11. Metoprolol 50 mg p.o. daily. 12. MiraLAX 17 g p.o. daily. 13. Omeprazole 20 mg p.o. daily. 14. Potassium 20 mEq p.o. daily. 15. Tramadol 50 mg p.o. p.r.n. pain. 16. Sertraline 100 mg p.o. q.p.m. 17. [place]-3 of 1000 mg p.o. b.i.d. 18. Ferrous sulfate 325 mg p.o. daily. HPI/HOSPITAL COURSE: Sherine Olea is an 89-year-old female with past medical history significant for chronic iron-deficiency anemia, adenocarcinoma of the colon status post colectomy, who presented with a hemoglobin of 5.3 on admission. She received 2 units of packed red blood cells, an iron infusion and her hemoglobin was stable around 8 for the rest of her admission. Iron was 8, TIBC 438, 2% iron sat, and B12 and folate were within normal limits. GI was consulted and performed an EGD and colonoscopy with findings of sigmoid diverticulosis, internal hemorrhoids. Dr. Wilder did not know the source for iron deficiency anemia. His recommendation was follow up at the office with Dr. Desai, her deputy bailiff, and if her anemia did not respond to the iron supplement, then he recommended a small bowel capsule endoscopy. She was instructed to start her Eliquis on the day after discharge. Return precautions discussed. DISCHARGE INSTRUCTIONS: 1. Location: [facility]. 2. Diet: Heart healthy. 3. Activity: Ad drake. 4. Followup: a. Follow up with primary care provider within one week. b. Follow up with Dr. Desai within 2 weeks. DISPOSITION: Stable. Job ID: [id number] [id number]
== END 2020-03-06 17:37 | DRG 812 ==
LOC: ERS 10:53 → SJJU 11:29
PROVIDERS: ADMIT Emergency Medicine; ATTEND Emergency Medicine
PROC: 30233N1 Transfusion of Nonautologous Red Blood Cells into Peripheral Vein, Percutaneous Approach (ICD-10-PCS; principal; 2020-03-03)
PROC: 0DJ08ZZ Inspection of Upper Intestinal Tract, Via Natural or Artificial Opening Endoscopic (ICD-10-PCS; 2020-03-06)
PROC: 0DJD8ZZ Inspection of Lower Intestinal Tract, Via Natural or Artificial Opening Endoscopic (ICD-10-PCS; 2020-03-06)
DX: D50.9 Iron deficiency anemia, unspecified (principal); Z20.822 Contact with and (suspected) exposure to COVID-19; I48.91 Unspecified atrial fibrillation; F03.90 Unspecified dementia, unspecified severity, without behavioral disturbance, psychotic disturbance, mood disturbance, and anxiety; E78.5 Hyperlipidemia, unspecified; F32.9 Major depressive disorder, single episode, unspecified; K59.00 Constipation, unspecified; G89.29 Other chronic pain; M54.9 Dorsalgia, unspecified; K21.9 Gastro-esophageal reflux disease without esophagitis; K76.89 Other specified diseases of liver; I50.9 Heart failure, unspecified; K57.30 Diverticulosis of large intestine without perforation or abscess without bleeding; K64.8 Other hemorrhoids; I11.0 Hypertensive heart disease with heart failure; Z90.49 Acquired absence of other specified parts of digestive tract; Z28.82 Immunization not carried out because of caregiver refusal; Z95.0 Presence of cardiac pacemaker; Z88.1 Allergy status to other antibiotic agents; Z88.5 Allergy status to narcotic agent; Z79.899 Other long term (current) drug therapy; Z88.8 Allergy status to other drugs, medicaments and biological substances; Z85.038 Personal history of other malignant neoplasm of large intestine; Z91.81 History of falling
CPT/HCPCS: 36415; 36430; 80053; 81003; 82274; 82607; 82728; 82746; 83540; 83550; 84436; 84439; 85025; 85060; 86850; 86900; 86901; 87635; J2704; J2916; J3490; P9016; U0003; U0005

== ENCOUNTER 2020-06-16 09:55 | Inpatient (IN) | payer MEDICARE, OTHER ==
[2020-06-16 10:54] LABS: #Eosinphils 0.1 thou/uL (0.0-0.7); #Lymphocytes 0.9 thou/uL (1.20-3.40); #Monocytes 0.4 thou/uL (0.11-0.59); #Neutrophils 6.1 thou/uL (1.40-6.50); %Eosinophils 1.4 % (0.0-10.0); %Lymphocytes 12.1 % (21.0-51.0); %Monocytes 5.3 % (0.0-10.0); %Neutrophils 81.1 % (42.0-75.0); Hemoglobin 12.1 g/dL (12.0-16.0); Mean Corpuscular HGB CONC 31.8 g/dL (32.0-36.0); Mean Corpuscular Hemoglobin 28.1 pg (27.0-31.0); Mean Corpuscular Volume 88.5 fL (78.0-98.0); Mean Platelet Volume 8.1 fL (7.4-10.4); Platelet Count 214 thou/uL (130-400); RBC Distribution Width 13.4 % (11.5-14.5); Red Blood Cell (RBC) Count 4.29 mill/uL (4.20-5.40); White Blood Cell (WBC) Count 7.5 thou/uL (4.8-10.8)
[2020-06-16] MEDS ORDERED: Acetaminophen 500 MG TAB ONE (11:01)
[2020-06-16 11:03] LABS: ALT (SGPT) 11 U/L (8-55); AST (SGOT) 25 U/L (5-34); Albumin 4.1 g/dL (3.4-4.8); Alkaline Phosphatase 105 U/L (40-110); Anion Gap 16 mmol/L (10-20); BUN (Urea Nitrogen) 10 mg/dL (9.8-20.1); Bilirubin, Total 0.7 mg/dL (0.2-1.2); CK (CPK) 52 U/L (29-168); Calc. Creatinine Clearance 0 mL/min (70-130); Calcium 10.1 mg/dL (7.8-10.44); Carbon Dioxide 22 mmol/L (23-31); Chloride 103 mmol/L (98-107); Globulin 3.1 g/dL (2.4-3.5); Glucose 107 mg/dL (83-110); Potassium 3.6 mmol/L (3.5-5.1); Protein, Total 7.2 g/dL (5.8-8.1); Sodium 137 mmol/L (136-145)
[2020-06-16] MEDS ORDERED: Dextrose 5% in Water 1,000 ML IV PRN (11:40)
[2020-06-16] MEDS ORDERED: Dextrose 50% Abboject 50 ML SYRINGE SLOW IVP PRN (11:40)
[2020-06-16] MEDS ORDERED: Morphine 4 MG/ML VIAL ONE (11:54)
[2020-06-16] MEDS ORDERED: hydrALAZINE 20 MG/ML VIAL SLOW IVP PRN (12:12)
[2020-06-16] MEDS ORDERED: Ondansetron PF 4 MG/2 ML Vial IVP PRN (12:12)
[2020-06-16] MEDS ORDERED: ADMIXTURE FEE IV SCH (12:15)
[2020-06-16] MEDS ORDERED: HUMAN PROTHROMBIN COMPLX IV SCH (12:15)
[2020-06-16] MEDS ORDERED: Metoprolol Tartrate 50 MG TAB PO SCH (13:15)
[2020-06-16 13:18] LABS: Magnesium 2.1 mg/dL (1.6-2.6); Phosphorus 2.3 mg/dL (2.3-4.7)
[2020-06-16 14:00] LABS: SARS-CoV-2 NAA Rapid Test Not Detected (NotDetected)
[2020-06-16 14:53] LABS: PTT 28.7 sec (22.9-36.1)
[2020-06-16 15:39] VITALS: BMI 25.0
[2020-06-16] MEDS: Sodium Chloride 0.9% 1,000 ML IV SCH ×2 (16:21→23:58)
[2020-06-16] MEDS: traMADol HCl 50 MG TAB PO PRN (17:10)
[2020-06-16] MEDS: Flecainide 50 MG TAB PO SCH (20:37)
[2020-06-16] MEDS: Acetaminophen 500 MG TAB PO PRN (20:55)
[2020-06-16] MEDS ORDERED: Famotidine/PF 20 mg/2ml Vial SLOW IVP SCH (21:00)
[2020-06-16] MEDS: hydrALAZINE 20 MG/ML VIAL SLOW IVP PRN (21:56)
[2020-06-17 04:12] LABS: #Eosinphils 0.1 thou/uL (0.0-0.7); #Lymphocytes 1.1 thou/uL (1.20-3.40); #Monocytes 0.6 thou/uL (0.11-0.59); #Neutrophils 6.2 thou/uL (1.40-6.50); %Eosinophils 1.7 % (0.0-10.0); %Lymphocytes 13.2 % (21.0-51.0); %Neutrophils 78.1 % (42.0-75.0); Hemoglobin 11.8 g/dL (12.0-16.0); Mean Corpuscular HGB CONC 32.2 g/dL (32.0-36.0); Mean Corpuscular Hemoglobin 28.3 pg (27.0-31.0); Mean Corpuscular Volume 87.9 fL (78.0-98.0); Mean Platelet Volume 8.3 fL (7.4-10.4); Platelet Count 178 thou/uL (130-400); RBC Distribution Width 13.7 % (11.5-14.5); Red Blood Cell (RBC) Count 4.18 mill/uL (4.20-5.40)
[2020-06-17 04:22] LABS: PTT 31.6 sec (22.9-36.1); Prothrombin Time 13.7 sec (12.0-14.7)
[2020-06-17 04:39] LABS: Phosphorus 3.9 mg/dL (2.3-4.7)
[2020-06-17 04:51] LABS: Anion Gap 15 mmol/L (10-20); BUN (Urea Nitrogen) 11 mg/dL (9.8-20.1); Calc. Creatinine Clearance 58 mL/min (70-130); Calcium 9.5 mg/dL (7.8-10.44); Carbon Dioxide 22 mmol/L (23-31); Chloride 106 mmol/L (98-107); Glucose 100 mg/dL (83-110); Magnesium 2.1 mg/dL (1.6-2.6); Potassium 3.7 mmol/L (3.5-5.1); Sodium 139 mmol/L (136-145)
[2020-06-17] MEDS: hydrALAZINE 20 MG/ML VIAL SLOW IVP PRN (06:06)
[2020-06-17] MEDS ORDERED: Metoprolol Tartrate 5 MG/5 ML VIAL IVP STA (07:41)
[2020-06-17] MEDS ORDERED: Metoprolol Tartrate 5 MG/5 ML VIAL ONE (07:47)
[2020-06-17] MEDS ORDERED: Metoprolol Tartrate 5 MG/5 ML VIAL IVP SCH (08:00)
[2020-06-17] MEDS: Flecainide 50 MG TAB PO SCH ×2 (08:40→22:13)
[2020-06-17] MEDS: Famotidine 20 MG TAB PO SCH ×2 (08:40→22:14)
[2020-06-17] MEDS: Furosemide 80 MG TAB PO SCH (08:54)
[2020-06-17] MEDS: Sodium Chloride 0.9% 1,000 ML IV SCH (08:54)
[2020-06-17] MEDS: Potassium Chloride 20 MEQ TAB PO SCH (08:54)
[2020-06-17] MEDS: Icosapent Ethyl 1 GM CAPSULE FS SCH ×2 (08:55→22:14)
[2020-06-17] MEDS ORDERED: Digoxin 0.5 MG/2 ML AMP SLOW IVP SCH (09:15)
[2020-06-17] MEDS: Polyethylene Glycol 3350 17 GM Packet PO SCH (11:04)
[2020-06-17] MEDS: Melatonin 3 MG TAB PO SCH (22:13)
[2020-06-17] MEDS: Donepezil HCl 5 MG TAB PO SCH (22:14)
[2020-06-18] MEDS: Potassium Chloride 20 MEQ TAB PO SCH (09:25)
[2020-06-18] MEDS: Famotidine 20 MG TAB PO SCH ×2 (09:25→22:27)
[2020-06-18] MEDS: Furosemide 80 MG TAB PO SCH (09:25)
[2020-06-18] MEDS: Acetaminophen 500 MG TAB PO PRN (09:26)
[2020-06-18] MEDS: traMADol HCl 50 MG TAB PO PRN (09:26)
[2020-06-18] MEDS: Polyethylene Glycol 3350 17 GM Packet PO SCH (09:27)
[2020-06-18] MEDS: Flecainide 50 MG TAB PO SCH ×2 (10:40→22:28)
[2020-06-18] MEDS: Icosapent Ethyl 1 GM CAPSULE FS SCH ×2 (10:41→22:28)
[2020-06-18] MEDS: Donepezil HCl 5 MG TAB PO SCH (22:27)
[2020-06-18] MEDS: Melatonin 3 MG TAB PO SCH (22:33)
[2020-06-19] MEDS: Furosemide 80 MG TAB PO SCH (09:46)
[2020-06-19] MEDS: Polyethylene Glycol 3350 17 GM Packet PO SCH (09:46)
[2020-06-19] MEDS: Famotidine 20 MG TAB PO SCH ×2 (09:46→22:12)
[2020-06-19] MEDS: Potassium Chloride 20 MEQ TAB PO SCH (09:46)
[2020-06-19] MEDS: Icosapent Ethyl 1 GM CAPSULE FS SCH ×2 (10:15→22:15)
[2020-06-19] MEDS: Flecainide 50 MG TAB PO SCH ×2 (10:15→22:14)
[2020-06-19] MEDS: HYDROcodone/Acetaminophen 10/325 mg Tablet PO SCH ×2 (15:19→22:16)
[2020-06-19] MEDS ORDERED: Cyclobenzaprine 10 MG TAB PO SCH (21:00)
[2020-06-19] MEDS: Melatonin 3 MG TAB PO SCH (22:12)
[2020-06-19] MEDS: Fish Oil 1,000 MG CAP PO SCH (22:14)
[2020-06-19] MEDS: Donepezil HCl 5 MG TAB PO SCH (22:14)
[2020-06-20] MEDS: HYDROcodone/Acetaminophen 10/325 mg Tablet PO SCH ×3 (03:47→15:13)
[2020-06-20] MEDS ORDERED: Ferrous Sulfate 325 MG TAB PO SCH (08:00)
[2020-06-20] MEDS: Polyethylene Glycol 3350 17 GM Packet PO SCH (09:48)
[2020-06-20] MEDS: Potassium Chloride 20 MEQ TAB PO SCH (09:48)
[2020-06-20] MEDS: Furosemide 80 MG TAB PO SCH (09:48)
[2020-06-20] MEDS: Icosapent Ethyl 1 GM CAPSULE FS SCH (09:49)
[2020-06-20] MEDS: Fish Oil 1,000 MG CAP PO SCH (09:49)
[2020-06-20] MEDS: Flecainide 50 MG TAB PO SCH (09:50)
[2020-06-20] MEDS: Famotidine 20 MG TAB PO SCH (09:50)
[2020-06-20 11:29] VITALS: BP 109/77; TEMP 97.9
== END 2020-06-20 15:48 | DRG 87 ==
LOC: ERS 09:55 → CCU 11:45 → SURG B 06-17 18:21
PROVIDERS: ADMIT Surgery; ATTEND Surgery
DX: S06.350A Traumatic hemorrhage of left cerebrum without loss of consciousness, initial encounter (principal); Z20.822 Contact with and (suspected) exposure to COVID-19; S42.017A Nondisplaced fracture of sternal end of right clavicle, initial encounter for closed fracture; S80.02XA Contusion of left knee, initial encounter; S80.01XA Contusion of right knee, initial encounter; R40.2362 Coma scale, best motor response, obeys commands, at arrival to emergency department; R40.2142 Coma scale, eyes open, spontaneous, at arrival to emergency department; R40.2252 Coma scale, best verbal response, oriented, at arrival to emergency department; I48.91 Unspecified atrial fibrillation; K21.9 Gastro-esophageal reflux disease without esophagitis; E78.5 Hyperlipidemia, unspecified; M19.90 Unspecified osteoarthritis, unspecified site; F03.90 Unspecified dementia, unspecified severity, without behavioral disturbance, psychotic disturbance, mood disturbance, and anxiety; G43.909 Migraine, unspecified, not intractable, without status migrainosus; M48.02 Spinal stenosis, cervical region; M81.0 Age-related osteoporosis without current pathological fracture; R00.0 Tachycardia, unspecified; W01.0XXA Fall on same level from slipping, tripping and stumbling without subsequent striking against object, initial encounter; Y92.121 Bathroom in nursing home as the place of occurrence of the external cause; Z79.01 Long term (current) use of anticoagulants; Z95.0 Presence of cardiac pacemaker; Z90.49 Acquired absence of other specified parts of digestive tract; Z85.038 Personal history of other malignant neoplasm of large intestine; Z85.820 Personal history of malignant melanoma of skin; Z79.899 Other long term (current) drug therapy; Z79.82 Long term (current) use of aspirin; Z82.49 Family history of ischemic heart disease and other diseases of the circulatory system; Z88.1 Allergy status to other antibiotic agents; Z88.5 Allergy status to narcotic agent; Z88.8 Allergy status to other drugs, medicaments and biological substances
CPT/HCPCS: 36415; 70450; 71045; 72125; 80048; 80053; 82550; 83735; 84100; 84484; 85025; 85610; 85730; 93005; 93010; 93970; 96374; 96375; C9132; G0390; J0360; J1160; J2270; J2405; J7030; S0028; U0002

== ENCOUNTER 2020-08-16 22:59 | Emergency (ER) | payer MEDICARE ==
[2020-08-17] MEDS ORDERED: Boostrix 0.5 ML (Tdap) VIAL ONE (01:07)
== END 2020-08-17 02:40 | disposition home or self-care (01) ==
LOC: ERS 22:59
DX: S00.01XA Abrasion of scalp, initial encounter (principal); I48.91 Unspecified atrial fibrillation; K21.9 Gastro-esophageal reflux disease without esophagitis; E78.5 Hyperlipidemia, unspecified; I10 Essential (primary) hypertension; Z79.899 Other long term (current) drug therapy; W18.30XA Fall on same level, unspecified, initial encounter
CPT/HCPCS: 70450; 72125; 90471; 90715

== ENCOUNTER 2020-10-06 11:38 | Emergency (ER) | payer MEDICARE ==
[2020-10-06 12:12] LABS: #Eosinphils 0.1 thou/uL (0.0-0.7); #Lymphocytes 1.4 thou/uL (1.20-3.40); #Monocytes 0.2 thou/uL (0.11-0.59); #Neutrophils 4.9 thou/uL (1.40-6.50); %Basophils 0.1 % (0.0-1.0); %Eosinophils 0.9 % (0.0-10.0); %Lymphocytes 21.3 % (21.0-51.0); %Monocytes 3.6 % (0.0-10.0); %Neutrophils 74.1 % (42.0-75.0); Mean Corpuscular HGB CONC 32.5 g/dL (32.0-36.0); Mean Corpuscular Hemoglobin 28.5 pg (27.0-31.0); Mean Corpuscular Volume 87.7 fL (78.0-98.0); Mean Platelet Volume 7.1 fL (7.4-10.4); Platelet Count 234 thou/uL (130-400); RBC Distribution Width 14.5 % (11.5-14.5); Red Blood Cell (RBC) Count 4.22 mill/uL (4.20-5.40); White Blood Cell (WBC) Count 6.6 thou/uL (4.8-10.8)
[2020-10-06 12:31] LABS: ALT (SGPT) 14 U/L (8-55); AST (SGOT) 22 U/L (5-34); Acetaminophen Less than 6.0 mcg/mL (10.0-30.0); Albumin 3.8 g/dL (3.4-4.8); Alcohol Less than 10 mg/dL (Less than 10); Alkaline Phosphatase 116 U/L (40-110); Anion Gap 11 mmol/L (10-20); BUN (Urea Nitrogen) 13 mg/dL (9.8-20.1); Bilirubin, Total 0.6 mg/dL (0.2-1.2); Calc. Creatinine Clearance 0 mL/min (70-130); Calcium 9.4 mg/dL (7.8-10.44); Carbon Dioxide 28 mmol/L (23-31); Chloride 105 mmol/L (98-107); Glucose 105 mg/dL (83-110); Lipase 42 U/L (8-78); Potassium 3.6 mmol/L (3.5-5.1); Protein, Total 6.8 g/dL (5.8-8.1); Salicylate Less than 8.0 mg/dL (15.0-30.0); Sodium 140 mmol/L (136-145)
[2020-10-06 12:44] LABS: Bacteria/HPF 2+ HPF (None Seen); Bilirubin Negative (Negative); Blood, Urine Negative (Negative); Clarity Turbid (Clear); Glucose, Urine (Dipstick) Normal (Negative); Ketone, Urine Negative (Negative); Leukocyte 250 Leu/uL (Negative); Nitrite 2+ (Negative); Protein, Urine (Dipstick) 10 mg/dL (Neg-Trace); Squamous Epithelial 0-3 HPF (0-3); Urobilinogen Normal mg/dL (Less than 2)
[2020-10-06 13:01] LABS: Amphetamine Not Detected (NotDetected); Barbiturates Screen Not Detected (NotDetected); Benzodiazepine Screen Not Detected (NotDetected); Cocaine Metabolite Screen Not Detected (NotDetected); Methadone Not Detected (NotDetected); Methamphetamine Not Detected (NotDetected); Opiate Screen Not Detected (NotDetected); Oxycodone Screen Not Detected (NotDetected); Phencyclidine (PCP) Not Detected (NotDetected); THC/Cannabinoid Screen Not Detected (NotDetected); Tricyclic Screen Not Detected (NotDetected)
[2020-10-06] MEDS ORDERED: cefTRIAXone\\ROCEPHIN 1 GM VIAL ONE ×2 (14:17→15:19)
[2020-10-06] MEDS ORDERED: Lidocaine 1% PF 5 ML VIAL ONE (15:19)
== END 2020-10-06 19:31 ==
LOC: ERS 11:38
DX: N39.0 Urinary tract infection, site not specified (principal); I48.91 Unspecified atrial fibrillation; K21.9 Gastro-esophageal reflux disease without esophagitis; E78.5 Hyperlipidemia, unspecified; I10 Essential (primary) hypertension; Z79.899 Other long term (current) drug therapy
CPT/HCPCS: 36415; 80053; 80306; 80307; 81003; 81015; 82140; 83690; 85025; 87077; 87086; 87186; 93005; 94760; 96372; J0696

== ENCOUNTER 2021-06-29 14:31 | Emergency (ER) | payer MEDICARE ==
[2021-06-29 15:32] LABS: #Eosinphils 0.2 thou/uL (0.0-0.7); #Lymphocytes 1.3 thou/uL (1.20-3.40); #Monocytes 0.4 thou/uL (0.11-0.59); #Neutrophils 5.2 thou/uL (1.40-6.50); %Basophils 0.3 % (0.0-1.0); %Eosinophils 2.2 % (0.0-10.0); %Lymphocytes 18.9 % (21.0-51.0); %Monocytes 6.1 % (0.0-10.0); %Neutrophils 72.6 % (42.0-75.0); Mean Corpuscular HGB CONC 32.1 g/dL (32.0-36.0); Mean Corpuscular Hemoglobin 28.7 pg (27.0-31.0); Mean Corpuscular Volume 89.2 fL (78.0-98.0); Mean Platelet Volume 7.5 fL (7.4-10.4); Platelet Count 250 thou/uL (130-400); RBC Distribution Width 13.7 % (11.5-14.5); Red Blood Cell (RBC) Count 4.88 mill/uL (4.20-5.40); White Blood Cell (WBC) Count 7.1 thou/uL (4.8-10.8)
[2021-06-29 16:39] LABS: Albumin 3.9 g/dL (3.4-4.8)
[2021-06-29 16:40] LABS: Chloride 106 mmol/L (98-107); Potassium 3.4 mmol/L (3.5-5.1); Sodium 139 mmol/L (136-145)
[2021-06-29 16:41] LABS: Calcium 9.3 mg/dL (7.8-10.44); Glucose 106 mg/dL (83-110)
[2021-06-29 16:42] LABS: Globulin 3.1 g/dL (2.4-3.5)
[2021-06-29 16:43] LABS: Anion Gap 13 mmol/L (10-20); Bilirubin, Total 1.1 mg/dL (0.2-1.2); Carbon Dioxide 23 mmol/L (23-31)
[2021-06-29 16:44] LABS: Alkaline Phosphatase 102 U/L (40-110)
[2021-06-29 16:45] LABS: BUN (Urea Nitrogen) 17 mg/dL (9.8-20.1); Calc. Creatinine Clearance 0 mL/min (70-130)
[2021-06-29 16:47] LABS: ALT (SGPT) 18 U/L (8-55); AST (SGOT) 36 U/L (5-34)
== END 2021-06-29 16:55 ==
LOC: ERS 14:31
DX: L03.116 Cellulitis of left lower limb (principal); I10 Essential (primary) hypertension; I48.91 Unspecified atrial fibrillation; K21.9 Gastro-esophageal reflux disease without esophagitis; E78.5 Hyperlipidemia, unspecified; M19.90 Unspecified osteoarthritis, unspecified site; Z79.82 Long term (current) use of aspirin; Z79.899 Other long term (current) drug therapy
CPT/HCPCS: 36415; 80053; 83605; 85025; 93005

== ENCOUNTER 2021-07-08 13:59 | Emergency (ER) | payer OTHER, MEDICARE | END 2021-07-08 16:30 | disposition home or self-care (01) | LOC: ERS 13:59 | DX: S00.03XA Contusion of scalp, initial encounter (principal); I48.91 Unspecified atrial fibrillation; K21.9 Gastro-esophageal reflux disease without esophagitis; E78.5 Hyperlipidemia, unspecified; I10 Essential (primary) hypertension; M19.90 Unspecified osteoarthritis, unspecified site; Z79.899 Other long term (current) drug therapy; W01.190A Fall on same level from slipping, tripping and stumbling with subsequent striking against furniture, initial encounter | CPT/HCPCS: 70450; 72125; 99283 ==

== ENCOUNTER 2021-11-21 18:50 | Emergency (ER) | payer MEDICARE, OTHER ==
[2021-11-21 19:34] LABS: #Eosinphils 0.2 thou/uL (0.0-0.7); #Lymphocytes 1.2 thou/uL (1.20-3.40); #Monocytes 0.5 thou/uL (0.11-0.59); #Neutrophils 4.9 thou/uL (1.40-6.50); %Basophils 0.2 % (0.0-1.0); %Eosinophils 2.4 % (0.0-10.0); %Lymphocytes 17.9 % (21.0-51.0); %Monocytes 6.7 % (0.0-10.0); %Neutrophils 72.8 % (42.0-75.0); Hemoglobin 11.5 g/dL (12.0-16.0); Mean Corpuscular HGB CONC 31.7 g/dL (32.0-36.0); Mean Corpuscular Hemoglobin 28.6 pg (27.0-31.0); Mean Corpuscular Volume 90.2 fL (78.0-98.0); Mean Platelet Volume 7.8 fL (7.4-10.4); Platelet Count 225 thou/uL (130-400); RBC Distribution Width 12.4 % (11.5-14.5); Red Blood Cell (RBC) Count 4.03 mill/uL (4.20-5.40); White Blood Cell (WBC) Count 6.7 thou/uL (4.8-10.8)
[2021-11-21 19:46] LABS: ALT (SGPT) 11 U/L (8-55); AST (SGOT) 21 U/L (5-34); Albumin 4.2 g/dL (3.4-4.8); Alkaline Phosphatase 91 U/L (40-110); Anion Gap 13 mmol/L (10-20); BUN (Urea Nitrogen) 23 mg/dL (9.8-20.1); Bilirubin, Total 0.4 mg/dL (0.2-1.2); Calc. Creatinine Clearance 0 mL/min (70-130); Calcium 9.7 mg/dL (7.8-10.44); Carbon Dioxide 26 mmol/L (23-31); Chloride 104 mmol/L (98-107); Estimated GFR 50; Globulin 2.9 g/dL (2.4-3.5); Glucose 82 mg/dL (83-110); Potassium 3.9 mmol/L (3.5-5.1); Protein, Total 7.1 g/dL (5.8-8.1); Sodium 139 mmol/L (136-145)
== END 2021-11-21 21:03 | disposition home or self-care (01) ==
LOC: ERS 18:50
DX: F03.90 Unspecified dementia, unspecified severity, without behavioral disturbance, psychotic disturbance, mood disturbance, and anxiety (principal); E78.5 Hyperlipidemia, unspecified; I10 Essential (primary) hypertension; Z95.0 Presence of cardiac pacemaker
CPT/HCPCS: 36416; 70450; 80053; 85025; 93005